=== PATIENT | female | born 1945 | race Hispanic/Latino ===

== ENCOUNTER 2017-08-30 13:32 | Emergency (ER) | payer OTHER, MEDICARE | END 2017-08-30 14:25 | disposition home or self-care (01) | LOC: EDH 13:32 | DX: L29.9 Pruritus, unspecified (principal) | CPT/HCPCS: 99282 ==

== ENCOUNTER → 2018-01-14 | Outpatient (CLI) | payer OTHER, MEDICARE | END | disposition home or self-care (01) | LOC: RAH 13:55 | PROVIDERS: ATTEND Family Medicine | DX: Z12.31 Encounter for screening mammogram for malignant neoplasm of breast (principal) | CPT/HCPCS: 77067 ==

== ENCOUNTER → 2020-05-05 | Outpatient (CLI) | payer OTHER, MEDICARE | END | disposition home or self-care (01) | LOC: RAH 04-21 11:10 | PROVIDERS: ATTEND Family Medicine | DX: Z12.31 Encounter for screening mammogram for malignant neoplasm of breast (principal) | CPT/HCPCS: 77067 ==

== ENCOUNTER 2022-07-12 12:06 | Inpatient (IN) | payer OTHER, MEDICARE ==
[~2022-07-12] VITALS: Ht 160 cm; Wt 70.0 kg
[2022-07-12] MEDS ORDERED: 0.9%NACL 1000ML 1,000 ML IV ONE (12:30)
[2022-07-12] MEDS: CLINDAMYCIN IVPB 600MG/50ML 50 ML IV SCH ×2 (12:44→20:04)
[2022-07-12 12:47] LABS: BASOPHILS % (AUTO) 0.4 % (0.0-5.0); EOSINOPHILS % (AUTO) 4.9 % (0.0-8.0); HEMATOCRIT 33.5 % (36-48); LYMPHOCYTES % (AUTO) 15.4 % (21.0-51.0); MEAN CORPUSCULAR HEMOGLOBIN 29.2 pg (27.0-33.0); MEAN CORPUSCULAR HGB CONC 32.5 g/dL (32.0-36.0); MEAN CORPUSCULAR VOLUME 89.8 fL (79-99); MONOCYTES % (AUTO) 9.9 % (3.0-13.0); NEUTROPHILS % (AUTO) 69.1 % (40.0-77.0); PLATELET COUNT (AUTO) 238 K/uL (130-400); RED BLOOD CELL COUNT(AUTO) 3.73 MIL/uL (4.00-5.50); RED CELL DISTRIBUTION WIDTH 13.8 % (11.0-15.5)
[2022-07-12 12:55] LABS: CREATININE 0.8 mg/dL (0.5-1.5); POTASSIUM 3.8 mmol/L (3.5-5.1)
[2022-07-12 13:00] LABS: ALBUMIN 3.6 g/dL (3.5-5.0); CRP QUANTITATIVE 17.7 mg/L (0.00-9.0)
[2022-07-12 13:45] LABS: APPEARANCE,URINE CLEAR (CLEAR); BILIRUBIN,URINE NEGATIVE (NEGATIVE); COLOR,URINE LIGHT-YELLOW (YELLOW); GLUCOSE, URINE (UA) NEGATIVE (NEGATIVE); KETONES,URINE NEGATIVE (NEGATIVE); LEUKOCYTE ESTERASE ,URINE NEGATIVE Leu/uL (NEGATIVE); NITRATE,URINE NEGATIVE (NEGATIVE); OCCULT BLOOD,URINE NEGATIVE (NEGATIVE); PH,URINE 6.5 (5.0-8.0); PROTEIN,URINE NEGATIVE (NEGATIVE); UROBILINOGEN,URINE 0.2 mg/dL (0.2-1.0)
[2022-07-12] MEDS ORDERED: HYDROCODONE/ACETAMINOPHEN 5/325 MG TAB PO PRN (16:30)
[2022-07-12] MEDS ORDERED: ONDANSETRON 4MG INJ IV PRN (16:30)
[2022-07-12] MEDS ORDERED: LACTULOSE 20 GM/30 ML UDCUP PO PRN (16:30)
[2022-07-12] MEDS ORDERED: ZOLPIDEM TARTRATE 5 MG TAB PO PRN (16:30)
[2022-07-12] MEDS: 0.9%NACL 1000ML 1,000 ML IV SCH ×2 (17:36→22:34)
[2022-07-12 18:41] VITALS: BP 140/57
[2022-07-12] MEDS: FAMOTIDINE 20MG TAB PO SCH (20:04)
[2022-07-12 20:31] VITALS: BP 124/71
[2022-07-12] MEDS ORDERED: LEVO75 PO (23:27)
[2022-07-12] MEDS ORDERED: GABA600T10 PO (23:27)
[2022-07-12] MEDS ORDERED: SIMV-43 PO (23:27)
[2022-07-12] MEDS: DIPHENHYDRAMINE HCL 25 MG CAPSULE PO PRN (23:39)
[2022-07-13] VITALS (7 sets, daily range): BP systolic 115–134; BP diastolic 63–99
[2022-07-13] MEDS ORDERED: GABAPENTIN 300 MG CAPSULE PO PRN (00:30)
[2022-07-13] MEDS: CLINDAMYCIN IVPB 600MG/50ML 50 ML IV SCH ×3 (03:51→22:07)
[2022-07-13] MEDS: HYDROCODONE/ACETAMINOPHEN 5/325 MG TAB PO PRN ×2 (03:51→11:19)
[2022-07-13 05:55] LABS: BASOPHILS % (AUTO) 0.5 % (0.0-5.0); EOSINOPHILS % (AUTO) 5.2 % (0.0-8.0); HEMATOCRIT 28.8 % (36-48); MEAN CORPUSCULAR HEMOGLOBIN 29.4 pg (27.0-33.0); MEAN CORPUSCULAR HGB CONC 31.6 g/dL (32.0-36.0); MEAN CORPUSCULAR VOLUME 92.9 fL (79-99); MONOCYTES % (AUTO) 11.8 % (3.0-13.0); NEUTROPHILS % (AUTO) 59.2 % (40.0-77.0); PLATELET COUNT (AUTO) 201 K/uL (130-400); RED CELL DISTRIBUTION WIDTH 14.1 % (11.0-15.5); WHITE BLOOD COUNT (AUTO) 5.8 K/uL (4.8-10.8)
[2022-07-13 06:14] LABS: CREATININE 0.7 mg/dL (0.5-1.5); POTASSIUM 3.7 mmol/L (3.5-5.1); THYROID STIMULATING HORMONE 2.24 uIU/mL (0.36-3.74)
[2022-07-13 06:25] LABS: HEMOGLOBIN A1C 5.9 % (4.0-6.0)
[2022-07-13] MEDS ORDERED: LEVOTHYROXINE 100 MCG TABLET PO SCH (06:30)
[2022-07-13] MEDS: LEVOTHYROXINE 75 MCG TABLET PO SCH (07:15)
[2022-07-13] MEDS: FAMOTIDINE 20MG TAB PO SCH ×2 (11:14→21:00)
[2022-07-13] MEDS: 0.9%NACL 1000ML 1,000 ML IV SCH (11:22)
[2022-07-13] MEDS: ENOXAPARIN SODIUM 40 MG/0.4 ML SYRINGE SQ SCH (11:23)
[2022-07-13] MEDS ORDERED: LEVOFLOXACIN 500 MG/D5W 100 ML 100 ML ONE (13:06)
[2022-07-13] MEDS: LEVOFLOXACIN 500 MG/D5W 100 ML 100 ML IV SCH (13:22)
[2022-07-13] MEDS ORDERED: LORAZEPAM 2 MG/ML 1 ML VIAL IM SCH (15:00)
[2022-07-13] MEDS ORDERED: LORAZEPAM 2 MG/ML 1 ML VIAL IVP SCH (16:30)
[2022-07-13] MEDS: SIMVASTATIN 20 MG TABLET PO SCH (21:00)
[2022-07-13] MEDS: HALOPERIDOL INJ 5 MG/ML VIAL IM PRN (23:04)
[2022-07-14 04:10] VITALS: BP 116/54
[2022-07-14 04:18] LABS: HEMATOCRIT 30.6 % (36-48); MEAN CORPUSCULAR HGB CONC 32.4 g/dL (32.0-36.0); MEAN CORPUSCULAR VOLUME 89.7 fL (79-99); RED BLOOD CELL COUNT(AUTO) 3.41 MIL/uL (4.00-5.50); WHITE BLOOD COUNT (AUTO) 5.8 K/uL (4.8-10.8)
[2022-07-14 04:24] LABS: CREATININE 0.6 mg/dL (0.5-1.5); MAGNESIUM 1.9 mg/dL (1.80-2.40); PHOSPHORUS 3.9 mg/dL (2.5-4.9); POTASSIUM 3.8 mmol/L (3.5-5.1); TOTAL PROTEIN, SERUM 6.1 g/dL (6.0-8.3)
[2022-07-14] MEDS: CLINDAMYCIN IVPB 600MG/50ML 50 ML IV SCH ×3 (05:00→20:30)
[2022-07-14] MEDS: LEVOTHYROXINE 75 MCG TABLET PO SCH (06:07)
[2022-07-14 08:00] VITALS: BP 124/74
[2022-07-14 11:00] VITALS: BP 138/49
[2022-07-14] MEDS: ENOXAPARIN SODIUM 40 MG/0.4 ML SYRINGE SQ SCH (11:09)
[2022-07-14] MEDS: FAMOTIDINE 20MG TAB PO SCH ×2 (11:09→21:57)
[2022-07-14 16:00] VITALS: BP 137/72
[2022-07-14] MEDS: HALOPERIDOL INJ 5 MG/ML VIAL IM PRN (17:52)
[2022-07-14] MEDS: LEVOFLOXACIN 500 MG/D5W 100 ML 100 ML IV SCH (19:04)
[2022-07-14 20:05] VITALS: BP 113/57
[2022-07-14] MEDS: SIMVASTATIN 20 MG TABLET PO SCH (21:57)
[2022-07-14 23:36] VITALS: BP 134/83
[2022-07-15 04:11] LABS: HEMATOCRIT 30.3 % (36-48); MEAN CORPUSCULAR HEMOGLOBIN 29.4 pg (27.0-33.0); MEAN CORPUSCULAR HGB CONC 32.3 g/dL (32.0-36.0); RED BLOOD CELL COUNT(AUTO) 3.33 MIL/uL (4.00-5.50); RED CELL DISTRIBUTION WIDTH 13.8 % (11.0-15.5); WHITE BLOOD COUNT (AUTO) 5.4 K/uL (4.8-10.8)
[2022-07-15 04:12] VITALS: BP 103/70
[2022-07-15 04:33] LABS: CREATININE 0.7 mg/dL (0.5-1.5); MAGNESIUM 2.1 mg/dL (1.80-2.40); PHOSPHORUS 3.9 mg/dL (2.5-4.9); POTASSIUM 3.7 mmol/L (3.5-5.1); TOTAL PROTEIN, SERUM 6.1 g/dL (6.0-8.3)
[2022-07-15] MEDS: CLINDAMYCIN IVPB 600MG/50ML 50 ML IV SCH ×3 (05:18→21:13)
[2022-07-15] MEDS: LEVOTHYROXINE 75 MCG TABLET PO SCH (07:18)
[2022-07-15 07:30] VITALS: BP 131/72
[2022-07-15] MEDS: FAMOTIDINE 20MG TAB PO SCH ×2 (10:14→21:13)
[2022-07-15] MEDS: ENOXAPARIN SODIUM 40 MG/0.4 ML SYRINGE SQ SCH (10:16)
[2022-07-15 11:30] VITALS: BP 105/50
[2022-07-15] MEDS: LEVOFLOXACIN 500 MG/D5W 100 ML 100 ML IV SCH (14:58)
[2022-07-15 15:30] VITALS: BP 106/55
[2022-07-15] MEDS: CITALOPRAM 20 MG TABLET PO SCH (17:03)
[2022-07-15] MEDS ORDERED: PHARMACY COMMUNICATION MISC SCH (19:00)
[2022-07-15 20:00] VITALS: BP 139/45
[2022-07-15] MEDS ORDERED: DULOXETINE HCL 30 MG CAP PO SCH (21:00)
[2022-07-15] MEDS: TRAZODONE HCL 50 MG TAB PO SCH (21:13)
[2022-07-15] MEDS: SIMVASTATIN 20 MG TABLET PO SCH (21:13)
[2022-07-16] VITALS: BP 114/39
[2022-07-16 04:00] VITALS: BP 137/81
[2022-07-16 04:47] LABS: MEAN CORPUSCULAR HEMOGLOBIN 29.6 pg (27.0-33.0); MEAN CORPUSCULAR HGB CONC 34.2 g/dL (32.0-36.0); MEAN CORPUSCULAR VOLUME 86.6 fL (79-99); RED BLOOD CELL COUNT(AUTO) 3.58 MIL/uL (4.00-5.50); RED CELL DISTRIBUTION WIDTH 13.8 % (11.0-15.5); WHITE BLOOD COUNT (AUTO) 6.7 K/uL (4.8-10.8)
[2022-07-16 04:59] LABS: ALBUMIN 3.5 g/dL (3.5-5.0); CREATININE 0.7 mg/dL (0.5-1.5); CRP QUANTITATIVE 11.9 mg/L (0.00-9.0); MAGNESIUM 2.1 mg/dL (1.80-2.40); PHOSPHORUS 4.1 mg/dL (2.5-4.9); POTASSIUM 3.7 mmol/L (3.5-5.1); TOTAL PROTEIN, SERUM 6.9 g/dL (6.0-8.3)
[2022-07-16] MEDS: LEVOTHYROXINE 75 MCG TABLET PO SCH (06:09)
[2022-07-16] MEDS: CLINDAMYCIN IVPB 600MG/50ML 50 ML IV SCH (06:09)
[2022-07-16 07:30] VITALS: BP 154/61
[2022-07-16] MEDS: CITALOPRAM 20 MG TABLET PO SCH (09:35)
[2022-07-16] MEDS: FAMOTIDINE 20MG TAB PO SCH ×2 (09:35→20:50)
[2022-07-16] MEDS: ENOXAPARIN SODIUM 40 MG/0.4 ML SYRINGE SQ SCH (09:36)
[2022-07-16 11:00] VITALS: BP 106/58
[2022-07-16] MEDS ORDERED: VANCOMYCIN PROTOCOL PER PHARMACY IV SCH (11:00)
[2022-07-16] MEDS: CEFEPIME HCL 2 GM VIAL IVP SCH ×2 (12:19→22:45)
[2022-07-16] MEDS: HALOPERIDOL INJ 5 MG/ML VIAL IM PRN (12:20)
[2022-07-16 15:30] VITALS: BP 125/73
[2022-07-16] MEDS: VANCOMYCIN 1G/250ML KIT 250 ML IV SCH ×2 (16:51→22:46)
[2022-07-16 20:00] VITALS: BP 123/64
[2022-07-16] MEDS: TRAZODONE HCL 50 MG TAB PO SCH (20:50)
[2022-07-16] MEDS: SIMVASTATIN 20 MG TABLET PO SCH (20:50)
[2022-07-17] VITALS (15 sets, daily range): BP systolic 88–148; BP diastolic 45–73
[2022-07-17 04:37] LABS: ALBUMIN 3.2 g/dL (3.5-5.0); CREATININE 0.6 mg/dL (0.5-1.5); POTASSIUM 3.7 mmol/L (3.5-5.1); TOTAL PROTEIN, SERUM 6.5 g/dL (6.0-8.3)
[2022-07-17] MEDS: LEVOTHYROXINE 75 MCG TABLET PO SCH (06:37)
[2022-07-17 08:37] LABS: INR 0.94 (0.85-1.15); PROTHROMBIN TIME 10.3 SEC (9.6-11.6)
[2022-07-17 08:38] LABS: PARTIAL THROMBOPLASTIN TIME 29.9 SEC (26.3-35.5)
[2022-07-17] MEDS: ENOXAPARIN SODIUM 40 MG/0.4 ML SYRINGE SQ SCH (09:00)
[2022-07-17] MEDS: CITALOPRAM 20 MG TABLET PO SCH (09:00)
[2022-07-17] MEDS: FAMOTIDINE 20MG TAB PO SCH ×2 (09:00→20:42)
[2022-07-17] MEDS ORDERED: 0.9% NACL 250ML 250 ML ONE (09:41)
[2022-07-17] MEDS: CEFEPIME HCL 2 GM VIAL IVP SCH ×2 (09:48→22:16)
[2022-07-17] MEDS: VANCOMYCIN 1G/250ML KIT 250 ML IV SCH ×2 (09:49→23:47)
[2022-07-17] MEDS ORDERED: NICARDIPINE 25MG INJ IV ONE (11:29)
[2022-07-17] MEDS ORDERED: LIDOCAINE HCL 400MG/20ML VIAL ONE (11:29)
[2022-07-17] MEDS ORDERED: NITROGLYCERIN 50MG VIAL ONE (11:29)
[2022-07-17] MEDS ORDERED: IODIXANOL 320 MG/ML 100 ML VIAL ONE (11:29)
[2022-07-17] MEDS ORDERED: MIDAZOLAM HCL 1 MG/ML 2ML VIAL ONE (11:29)
[2022-07-17] MEDS ORDERED: HEPARIN 10,000 UNIT/10ML (1,000 UNIT/ML) VIAL ONE (11:29)
[2022-07-17] MEDS ORDERED: FENTANYL CITRATE PF 50 MCG/1 ML 2ML VIAL ONE (11:29)
[2022-07-17] MEDS ORDERED: ATROPINE 1MG SYG IVP ONE (12:50)
[2022-07-17] MEDS ORDERED: 0.9%NACL 1000ML 1,000 ML IV SCH (13:30)
[2022-07-17] MEDS ORDERED: DEXTROSE 50%-WATER 50 ML DISP.SYRIN IV PRN (13:30)
[2022-07-17] MEDS ORDERED: GLUCAGON 1MG KIT 1 MG ML IM PRN (13:30)
[2022-07-17] MEDS: TRAZODONE HCL 50 MG TAB PO SCH (20:42)
[2022-07-17] MEDS: SIMVASTATIN 20 MG TABLET PO SCH (20:42)
[2022-07-17] MEDS: DIPHENHYDRAMINE HCL 25 MG CAPSULE PO PRN (23:50)
[2022-07-18] VITALS: BP 154/84
[2022-07-18 04:00] VITALS: BP 121/52
[2022-07-18 05:09] LABS: CREATININE 0.5 mg/dL (0.5-1.5); POTASSIUM 3.4 mmol/L (3.5-5.1); TOTAL PROTEIN, SERUM 6.2 g/dL (6.0-8.3)
[2022-07-18 05:47] LABS: HEMATOCRIT 30.5 % (36-48); MEAN CORPUSCULAR HEMOGLOBIN 29.1 pg (27.0-33.0); MEAN CORPUSCULAR HGB CONC 32.1 g/dL (32.0-36.0); MEAN CORPUSCULAR VOLUME 90.5 fL (79-99); RED BLOOD CELL COUNT(AUTO) 3.37 MIL/uL (4.00-5.50); RED CELL DISTRIBUTION WIDTH 13.8 % (11.0-15.5)
[2022-07-18 06:04] LABS: HEMOGLOBIN A1C 5.8 % (4.0-6.0)
[2022-07-18] MEDS: LEVOTHYROXINE 75 MCG TABLET PO SCH (06:31)
[2022-07-18 07:30] VITALS: BP 141/62
[2022-07-18] MEDS: FAMOTIDINE 20MG TAB PO SCH (09:03)
[2022-07-18] MEDS: ENOXAPARIN SODIUM 40 MG/0.4 ML SYRINGE SQ SCH (09:03)
[2022-07-18] MEDS: CITALOPRAM 20 MG TABLET PO SCH (09:03)
[2022-07-18] MEDS: VANCOMYCIN 1G/250ML KIT 250 ML IV SCH (09:03)
[2022-07-18 11:30] VITALS: BP 140/86
[2022-07-18] MEDS: CEFEPIME HCL 2 GM VIAL IVP SCH (11:49)
[2022-07-18] MEDS ORDERED: ASPI-1005 PO (14:33)
== END 2022-07-18 18:00 | disposition home or self-care (01) | DRG 603 ==
LOC: EDH 12:06 → EDHIP 16:17 → OBSVTOIN 16:17 → 3DH 17:59
PROVIDERS: ADMIT Internal Medicine; ATTEND Internal Medicine
PROC: B41D1ZZ Fluoroscopy of Aorta and Bilateral Lower Extremity Arteries using Low Osmolar Contrast (ICD-10-PCS; principal; 2022-07-17)
DX: L03.116 Cellulitis of left lower limb (principal); R79.82 Elevated C-reactive protein (CRP); R00.1 Bradycardia, unspecified; Z20.822 Contact with and (suspected) exposure to COVID-19; E03.9 Hypothyroidism, unspecified; I10 Essential (primary) hypertension; M17.10 Unilateral primary osteoarthritis, unspecified knee; E78.00 Pure hypercholesterolemia, unspecified; G89.29 Other chronic pain; M54.9 Dorsalgia, unspecified; I73.9 Peripheral vascular disease, unspecified; F03.90 Unspecified dementia, unspecified severity, without behavioral disturbance, psychotic disturbance, mood disturbance, and anxiety; M48.061 Spinal stenosis, lumbar region without neurogenic claudication; M47.819 Spondylosis without myelopathy or radiculopathy, site unspecified; Z91.199 Patient's noncompliance with other medical treatment and regimen due to unspecified reason; I77.1 Stricture of artery
CPT/HCPCS: 36246; 36415; 70450; 73700; 75716; 80048; 80053; 80202; 81003; 82140; 83036; 83605; 83735; 84100; 84443; 85025; 85027; 85610; 85730; 86140; 87040; 87635; 93880; 93926; 93971; 99156; 99157; C1760; C1894; C9803; G0378; J0461; J0692; J1630; J1644; J1650; J1956; J2060; J2250; J3010; J3370; J3490; J7030; J7050; Q0163; Q9967

== ENCOUNTER → 2023-01-20 | Outpatient (CLI) | payer OTHER, MEDICARE ==
[~2023-01-20] MED LIST: ASPI-1005 PO; GABA600T10 PO; LEVO75 PO; MEMA5TAB42 PO; SIMV-43 PO
== END | disposition home or self-care (01) ==
LOC: RAH 10:24
PROVIDERS: ATTEND Family Medicine
DX: Z12.31 Encounter for screening mammogram for malignant neoplasm of breast (principal)
CPT/HCPCS: 77067

== ENCOUNTER 2023-12-18 11:31 | Inpatient (IN) | payer OTHER, MEDICARE ==
[~2023-12-18] VITALS: Ht 160 cm; Wt 65.9 kg
[~2023-12-18 11:31] MED LIST changes: +MEMA5TAB16 PO; -MEMA5TAB42 PO
[2023-12-18 12:21] LABS: BASOPHILS # (AUTO) 0.03 K/uL (0.00-0.20); BASOPHILS % (AUTO) 0.3 % (0.0-5.0); EOSINOPHILS # (AUTO) 0.01 K/uL (0.00-0.70); EOSINOPHILS % (AUTO) 0.1 % (0.0-8.0); HEMATOCRIT 43.7 % (36-48); IMMATURE GRANULOCYTE ABSOLUTE 0.05 K/uL (0-1); LYMPHOCYTES # (AUTO) 1.3 K/uL (1.0-4.8); LYMPHOCYTES % (AUTO) 12.1 % (21.0-51.0); MEAN CORPUSCULAR HGB CONC 34.3 g/dL (32.0-36.0); MEAN CORPUSCULAR VOLUME 84.5 fL (79-99); MONOCYTES % (AUTO) 9.6 % (3.0-13.0); NEUTROPHILS # (AUTO) 8.1 K/uL (1.8-7.7); NEUTROPHILS % (AUTO) 77.4 % (40.0-77.0); PLATELET COUNT (AUTO) 373 K/uL (130-400); RED BLOOD CELL COUNT(AUTO) 5.17 MIL/uL (4.00-5.50); RED CELL DISTRIBUTION WIDTH 14.1 % (11.0-15.5); WHITE BLOOD COUNT (AUTO) 10.4 K/uL (4.8-10.8)
[2023-12-18 12:40] LABS: ALBUMIN 4.8 g/dL (3.5-5.0); BILIRUBIN,TOTAL 0.6 mg/dL (0.2-1.0); CREATININE 3.5 mg/dL (0.5-1.0); POTASSIUM 3.9 mmol/L (3.5-5.1); TOTAL PROTEIN, SERUM 9.7 g/dL (6.0-8.3)
[2023-12-18 13:05] LABS: B-TYPE NATRIURETIC PEPTIDE 172 pg/mL (0-100)
[2023-12-18 14:01] LABS: BASE EXCESS,VENOUS BLOOD GAS 10.3 (-2.0-3.0); HCO3,VENOUS BLOOD GAS 36.9 (21.0-28.0); PCO2,VENOUS BLOOD GAS 57 (32-45); PH,VENOUS BLOOD GAS 7.431 (7.350-7.450); PO2,VENOUS BLOOD GAS 21.7 mmHg (35.0-45.0); VENT MODE, BG RA (ROOM AIR)
[2023-12-18] MEDS: ONDANSETRON 4MG INJ IVP ONE ×2 (14:38→17:00)
[2023-12-18] MEDS ORDERED: LABETALOL 20MG SYG IV PRN (15:00)
[2023-12-18] MEDS ORDERED: CLONIDINE HCL 0.1 MG TABLET PO PRN (15:00)
[2023-12-18] MEDS ORDERED: LACTULOSE 20 GM/30 ML UDCUP PO PRN (15:00)
[2023-12-18] MEDS ORDERED: ONDANSETRON 4MG INJ IV PRN (15:00)
[2023-12-18] MEDS ORDERED: HYDRALAZINE 20MG/ML VIAL IV PRN (15:00)
[2023-12-18] MEDS ORDERED: ACETAMINOPHEN 650 MG SUPPOSITORY RC PRN (15:00)
[2023-12-18] MEDS: 0.9%NACL 1000ML 1,000 ML IV SCH ×2 (16:54→19:30)
[2023-12-18] MEDS: CEFTRIAXONE 2GM VIAL IVPB SCH (17:01)
[2023-12-18] MEDS: METRONIDAZOLE 500MG/100ML BAG IV SCH (17:01)
[2023-12-18 20:12] LABS: MAGNESIUM 2.9 mg/dL (1.80-2.40); PHOSPHORUS 7.7 mg/dL (2.5-4.9); THYROID STIMULATING HORMONE 2.07 uIU/mL (0.36-3.74); URIC ACID 8.8 mg/dL (2.6-7.2)
[2023-12-18 23:10] VITALS: BP 144/109; PULSE 106; RESP 16; O2SAT 93
[2023-12-18] MEDS ORDERED: MEMA10TA21 PO (23:21)
[2023-12-18] MEDS ORDERED: TRAZ-185 PO (23:21)
[2023-12-18] MEDS ORDERED: CHOL500050 PO (23:42)
[2023-12-19] VITALS (31 sets, daily range): BP systolic 83–143; BP diastolic 40–89; PULSE 72–117; RESP 16–20; O2SAT 93–95
[2023-12-19] MEDS: HYDROCODONE/ACETAMINOPHEN 5/325 MG TAB PO PRN (03:20)
[2023-12-19] MEDS: HALOPERIDOL INJ 5 MG/ML VIAL IV ONE (03:24)
[2023-12-19] MEDS: HALOPERIDOL INJ 5 MG/ML VIAL ONE (03:25)
[2023-12-19 04:38] LABS: CHLORIDE,URINE RANDOM < 21 mmol/L (110-250); CREATININE,URINE RANDOM 176.66 mg/dL (30-135); POTASSIUM,URINE RANDOM 115 mmol/L (25-125); SODIUM,URINE RANDOM 18 mmol/l (40-220)
[2023-12-19 04:39] LABS: APPEARANCE,URINE CLOUDY (CLEAR); BILIRUBIN,URINE 1 mg/dL (NEGATIVE); COLOR,URINE YELLOW (YELLOW); GLUCOSE, URINE (UA) 30 mg/dL (NEGATIVE); KETONES,URINE NEGATIVE (NEGATIVE); LEUKOCYTE ESTERASE ,URINE NEGATIVE Leu/uL (NEGATIVE); NITRATE,URINE NEGATIVE (NEGATIVE); OCCULT BLOOD,URINE SMALL (NEGATIVE); PROTEIN,URINE 30 mg/dL (NEGATIVE); UROBILINOGEN,URINE 0.2 mg/dL (0.2-1.0)
[2023-12-19 04:47] LABS: ADD UA MICROSCOPIC YES
[2023-12-19 05:02] LABS: RBC,URINE 0-1 /HPF (0-1); WBC,URINE 0-1 /HPF (0-1)
[2023-12-19 05:03] LABS: BACTERIA,URINE Moderate /HPF (None Seen); SQUAMOUS EPITHELIAL CELL,UR Few /HPF (0-2)
[2023-12-19 05:37] LABS: HEMATOCRIT 42.1 % (36-48); MEAN CORPUSCULAR HGB CONC 34.2 g/dL (32.0-36.0); MEAN CORPUSCULAR VOLUME 84.9 fL (79-99); RED BLOOD CELL COUNT(AUTO) 4.96 MIL/uL (4.00-5.50); RED CELL DISTRIBUTION WIDTH 14.3 % (11.0-15.5); WHITE BLOOD COUNT (AUTO) 12.8 K/uL (4.8-10.8)
[2023-12-19 05:38] LABS: CREATININE 4.2 mg/dL (0.5-1.0); MAGNESIUM 2.7 mg/dL (1.80-2.40); POTASSIUM 3.3 mmol/L (3.5-5.1)
[2023-12-19] MEDS: PANTOPRAZOLE 40 MG TAB DR PO SCH (08:33)
[2023-12-19] MEDS: POLYETHYLENE GLYCOL 3350 17 GM POWD.PACK PO SCH (08:34)
[2023-12-19] MEDS: Vitamin B Complex/Vit C/Folic Acid PO SCH (08:34)
[2023-12-19] MEDS ORDERED: ENOXAPARIN SODIUM 40 MG/0.4 ML SYRINGE SQ SCH (09:00)
[2023-12-19] MEDS ORDERED: MEROPENEM 1 GM in 0.9%NACL 100ML 100 ML IV SCH (10:30)
[2023-12-19] MEDS: ENOXAPARIN SODIUM 30 MG/0.3 ML SQ SCH (10:45)
[2023-12-19] MEDS: [UNRECOGNIZED DRUG - OTHER] IV SCH (12:34)
[2023-12-19] MEDS: MEROPENEM IV SCH (12:34)
[2023-12-19] MEDS: ACETAMINOPHEN 1,000 MG/100 ML VIAL IV ONE (12:49)
[2023-12-19] MEDS: FAMOTIDINE 20MG VIAL IV ONE (12:49)
[2023-12-19 12:51] LABS: ABG BASE EXCESS 4.7 mmol/L (-2.0-3.0); ABG HCO3 27.4 mmol/L (21.0-28.0); ABG OXYGEN SATURATION 96.6 % (95.0-99.0); ABG PCO2 35 mmHg (32-45); ABG PH 7.517 (7.35-7.450); PO2, ARTERIAL BG 77.5 mmHg (83.0-108.0); VENT MODE, BG ROOM AIR (ROOM AIR)
[2023-12-19] MEDS ORDERED: PROPOFOL 10 MG/ML 20ML VIAL IV ONE (12:51)
[2023-12-19] MEDS ORDERED: FENTANYL CITRATE PF 50 MCG/1 ML 2ML VIAL ONE (12:51)
[2023-12-19] MEDS ORDERED: LIDOCAINE PF 100MG/5ML (2%) SYRINGE 5ML ONE (12:51)
[2023-12-19] MEDS ORDERED: DEXAMETHASONE SOD PHOSPHATE 4 MG/ML 1ML VIAL ONE (13:21)
[2023-12-19] MEDS ORDERED: ONDANSETRON 4MG INJ ONE (13:21)
[2023-12-19] MEDS: MEROPENEM 1 GM VIAL IV ONE (13:25)
[2023-12-19] MEDS: SUGAMMADEX SODIUM 200 MG/2 ML VIAL IV ONE (14:22)
[2023-12-19] MEDS ORDERED: BUPIVACAINE/PF 0.5% 10ML VIAL ONE (14:29)
[2023-12-19] MEDS: LACTATED RINGERS 1000ML 1,572 ML IV ONE (21:23)
[2023-12-19] MEDS: DOXYCYCLINE 100MG+NS 250ML 250 ML IV SCH (21:23)
[2023-12-19 21:26] LABS: BASOPHILS # (AUTO) 0.08 K/uL (0.00-0.20); BASOPHILS % (AUTO) 0.4 % (0.0-5.0); EOSINOPHILS # (AUTO) 0.01 K/uL (0.00-0.70); EOSINOPHILS % (AUTO) 0.1 % (0.0-8.0); HEMATOCRIT 37.2 % (36-48); IMMATURE GRANULOCYTE ABSOLUTE 0.22 K/uL (0-1); LYMPHOCYTES # (AUTO) 1.1 K/uL (1.0-4.8); MEAN CORPUSCULAR HEMOGLOBIN 29.9 pg (27.0-33.0); MEAN CORPUSCULAR HGB CONC 32.3 g/dL (32.0-36.0); MEAN CORPUSCULAR VOLUME 92.5 fL (79-99); MONOCYTES # (AUTO) 1.3 K/uL (0.1-1.0); NEUTROPHILS # (AUTO) 15.6 K/uL (1.8-7.7); NEUTROPHILS % (AUTO) 85.3 % (40.0-77.0); PLATELET COUNT (AUTO) 282 K/uL (130-400); RED BLOOD CELL COUNT(AUTO) 4.02 MIL/uL (4.00-5.50); RED CELL DISTRIBUTION WIDTH 14.5 % (11.0-15.5); WHITE BLOOD COUNT (AUTO) 18.3 K/uL (4.8-10.8)
[2023-12-19] MEDS ORDERED: 0.9%NACL 1000ML 1,000 ML IV SCH ×2 (21:30→22:30)
[2023-12-19 21:55] LABS: ALBUMIN 3.2 g/dL (3.5-5.0); BILIRUBIN,TOTAL 0.4 mg/dL (0.2-1.0); CREATININE 3.4 mg/dL (0.5-1.0); POTASSIUM 3.1 mmol/L (3.5-5.1)
[2023-12-19 23:44] LABS: HEMATOCRIT 30.3 % (36-48); MEAN CORPUSCULAR HEMOGLOBIN 30.1 pg (27.0-33.0); MEAN CORPUSCULAR HGB CONC 33.3 g/dL (32.0-36.0); MEAN CORPUSCULAR VOLUME 90.2 fL (79-99); RED BLOOD CELL COUNT(AUTO) 3.36 MIL/uL (4.00-5.50); WHITE BLOOD COUNT (AUTO) 13.5 K/uL (4.8-10.8)
[2023-12-20] VITALS (8 sets, daily range): BP systolic 107–141; BP diastolic 60–74; PULSE 77–85; RESP 16–18; O2SAT 95
[2023-12-20 03:19] LABS: BASOPHILS # (AUTO) 0.02 K/uL (0.00-0.20); BASOPHILS % (AUTO) 0.2 % (0.0-5.0); EOSINOPHILS # (AUTO) 0.01 K/uL (0.00-0.70); EOSINOPHILS % (AUTO) 0.1 % (0.0-8.0); HEMATOCRIT 25.2 % (36-48); IMMATURE GRANULOCYTE ABSOLUTE 0.19 K/uL (0-1); LYMPHOCYTES # (AUTO) 0.9 K/uL (1.0-4.8); LYMPHOCYTES % (AUTO) 9.4 % (21.0-51.0); MEAN CORPUSCULAR HEMOGLOBIN 30.2 pg (27.0-33.0); MEAN CORPUSCULAR HGB CONC 33.7 g/dL (32.0-36.0); MEAN CORPUSCULAR VOLUME 89.7 fL (79-99); MONOCYTES # (AUTO) 0.8 K/uL (0.1-1.0); NEUTROPHILS # (AUTO) 7.9 K/uL (1.8-7.7); NEUTROPHILS % (AUTO) 80.4 % (40.0-77.0); PLATELET COUNT (AUTO) 192 K/uL (130-400); RED BLOOD CELL COUNT(AUTO) 2.81 MIL/uL (4.00-5.50); RED CELL DISTRIBUTION WIDTH 14.2 % (11.0-15.5); WHITE BLOOD COUNT (AUTO) 9.8 K/uL (4.8-10.8)
[2023-12-20 03:26] LABS: ALBUMIN 2.3 g/dL (3.5-5.0); BILIRUBIN,TOTAL 0.3 mg/dL (0.2-1.0); CREATININE 2.1 mg/dL (0.5-1.0); PHOSPHORUS 2.9 mg/dL (2.5-4.9); POTASSIUM 3.3 mmol/L (3.5-5.1); TOTAL PROTEIN, SERUM 5.1 g/dL (6.0-8.3)
[2023-12-20] MEDS ORDERED: KCL 20 MEQ ERTAB PO PRN (06:00)
[2023-12-20] MEDS ORDERED: POTASSIUM CHLORIDE 10MEQ/100ML 100 ML IV PRN (06:00)
[2023-12-20] MEDS: POTASSIUM CHLORIDE 10% ELIXIR 20 MEQ/15 ML UDCUP PO PRN (06:02)
[2023-12-21] VITALS (9 sets, daily range): BP systolic 112–131; BP diastolic 45–75; PULSE 67–82; RESP 16–20; O2SAT 92–95
[2023-12-21 05:03] LABS: BASOPHILS # (AUTO) 0.03 K/uL (0.00-0.20); BASOPHILS % (AUTO) 0.2 % (0.0-5.0); EOSINOPHILS # (AUTO) 0.02 K/uL (0.00-0.70); EOSINOPHILS % (AUTO) 0.2 % (0.0-8.0); IMMATURE GRANULOCYTE ABSOLUTE 0.67 K/uL (0-1); LYMPHOCYTES # (AUTO) 1.7 K/uL (1.0-4.8); LYMPHOCYTES % (AUTO) 13.7 % (21.0-51.0); MEAN CORPUSCULAR HEMOGLOBIN 29.6 pg (27.0-33.0); MEAN CORPUSCULAR HGB CONC 31.9 g/dL (32.0-36.0); MEAN CORPUSCULAR VOLUME 92.9 fL (79-99); MONOCYTES # (AUTO) 1.3 K/uL (0.1-1.0); MONOCYTES % (AUTO) 10.2 % (3.0-13.0); NEUTROPHILS # (AUTO) 8.6 K/uL (1.8-7.7); NEUTROPHILS % (AUTO) 70.2 % (40.0-77.0); NUCLEATED RED BLOOD CELLS 0.2 % (0.0-0.19); PLATELET COUNT (AUTO) 229 K/uL (130-400); RED CELL DISTRIBUTION WIDTH 14.4 % (11.0-15.5); WHITE BLOOD COUNT (AUTO) 12.2 K/uL (4.8-10.8)
[2023-12-21 05:18] LABS: CREATININE 0.9 mg/dL (0.5-1.0); PHOSPHORUS 1.4 mg/dL (2.5-4.9); POTASSIUM 3.2 mmol/L (3.5-5.1)
[2023-12-21 05:33] LABS: % IRON SATURATION 34.1 % (22-44)
[2023-12-21] MEDS ORDERED: COMPOUND IV MISC 1 EACH IVSOLN MISC PRN (11:30)
[2023-12-21] MEDS ORDERED: COMPOUND IV REFRIGERATED 1 EACH IVSOLN MISC PRN (12:00)
[2023-12-21] MEDS: POTASSIUM PHOSPHATE IV SCH (12:03)
[2023-12-21] MEDS: NACL 0.9% IV SCH (12:03)
[2023-12-21] MEDS: POTASSIUM PHOS 15 mMOL+NS250ML 250 ML IV ONE (16:21)
[2023-12-22] VITALS (8 sets, daily range): BP systolic 125–136; BP diastolic 58–100; PULSE 62–78; RESP 16–18; O2SAT 93–100
[2023-12-22] MEDS: MELATONIN 5 MG TABLET PO ONE (00:50)
[2023-12-22] MEDS: MELATONIN 5 MG TABLET PO SCH (00:55)
[2023-12-22] MEDS: DiphenhydrAMINE HCL 50 MG/ML VIAL IV ONE (00:57)
[2023-12-22 05:48] LABS: HEMATOCRIT 23.8 % (36-48); MEAN CORPUSCULAR HEMOGLOBIN 28.7 pg (27.0-33.0); MEAN CORPUSCULAR HGB CONC 31.1 g/dL (32.0-36.0); MEAN CORPUSCULAR VOLUME 92.2 fL (79-99); NUCLEATED RED BLOOD CELLS 0.4 % (0.0-0.19); RED BLOOD CELL COUNT(AUTO) 2.58 MIL/uL (4.00-5.50); RED CELL DISTRIBUTION WIDTH 14.6 % (11.0-15.5); WHITE BLOOD COUNT (AUTO) 10.7 K/uL (4.8-10.8)
[2023-12-22 06:09] LABS: ALBUMIN 2.2 g/dL (3.5-5.0); BILIRUBIN,TOTAL 0.5 mg/dL (0.2-1.0); CREATININE 0.7 mg/dL (0.5-1.0); MAGNESIUM 1.9 mg/dL (1.80-2.40); PHOSPHORUS 1.8 mg/dL (2.5-4.9); POTASSIUM 3.5 mmol/L (3.5-5.1); TOTAL PROTEIN, SERUM 5.2 g/dL (6.0-8.3)
[2023-12-22] MEDS: POTASSIUM PHOSPHATE 15 MMOL in 0.9% NACL 250ML 250 ML IV SCH (17:20)
[2023-12-22] MEDS: ACETAMINOPHEN 325 MG TAB PO PRN (17:29)
[2023-12-23 04:00] VITALS: BP 150/78; PULSE 68; RESP 18
[2023-12-23 05:17] LABS: BASOPHILS # (AUTO) 0.03 K/uL (0.00-0.20); BASOPHILS % (AUTO) 0.3 % (0.0-5.0); EOSINOPHILS # (AUTO) 0.15 K/uL (0.00-0.70); EOSINOPHILS % (AUTO) 1.5 % (0.0-8.0); HEMATOCRIT 25.5 % (36-48); IMMATURE GRANULOCYTE ABSOLUTE 1.06 K/uL (0-1); LYMPHOCYTES # (AUTO) 1.8 K/uL (1.0-4.8); LYMPHOCYTES % (AUTO) 17.4 % (21.0-51.0); MEAN CORPUSCULAR HEMOGLOBIN 29.6 pg (27.0-33.0); MEAN CORPUSCULAR HGB CONC 32.2 g/dL (32.0-36.0); MEAN CORPUSCULAR VOLUME 92.1 fL (79-99); MONOCYTES # (AUTO) 0.9 K/uL (0.1-1.0); MONOCYTES % (AUTO) 8.6 % (3.0-13.0); NEUTROPHILS # (AUTO) 6.4 K/uL (1.8-7.7); NEUTROPHILS % (AUTO) 61.9 % (40.0-77.0); PLATELET COUNT (AUTO) 261 K/uL (130-400); RED BLOOD CELL COUNT(AUTO) 2.77 MIL/uL (4.00-5.50); RED CELL DISTRIBUTION WIDTH 14.5 % (11.0-15.5); WHITE BLOOD COUNT (AUTO) 10.3 K/uL (4.8-10.8)
[2023-12-23 05:29] LABS: CREATININE 0.6 mg/dL (0.5-1.0); MAGNESIUM 1.7 mg/dL (1.80-2.40); PHOSPHORUS 2.1 mg/dL (2.5-4.9); POTASSIUM 3.7 mmol/L (3.5-5.1)
[2023-12-23 08:00] VITALS: BP 113/66; PULSE 73; RESP 18; O2SAT 96
[2023-12-23] MEDS ORDERED: POTASSIUM CHLORIDE 10MEQ SR TAB PO PRN (08:00)
[2023-12-23] MEDS: MEMANTINE HCL 5 MG TABLET PO SCH (09:17)
[2023-12-23] MEDS: MAGNESIUM 2GM PREMIX 50ML 50 ML IV PRN (11:42)
[2023-12-23 12:00] VITALS: BP 153/77; PULSE 91; RESP 18
[2023-12-23 12:18] LABS: INR <= 0.93 (0.85-1.15); PROTHROMBIN TIME 10.7 SEC (9.6-11.6)
[2023-12-23 12:19] LABS: PARTIAL THROMBOPLASTIN TIME 31.6 SEC (26.3-35.5)
[2023-12-23 16:00] VITALS: BP 138/57; PULSE 68; RESP 16
[2023-12-23] MEDS ORDERED: TRAZODONE HCL 50 MG TAB PO SCH (21:00)
[2023-12-23] MEDS ORDERED: SIMVASTATIN 20 MG TABLET PO SCH (21:00)
[2023-12-24] MEDS ORDERED: LEVOTHYROXINE 75 MCG TABLET PO SCH (06:30)
== END 2023-12-23 18:00 | DRG 853 ==
LOC: EDH 11:31 → OBSVTOIN 11:32 → EDHIP 11:32 → UNDOADMOB 14:39 → 4DH 17:25 → 2AH 12-19 22:25 → 3BH 12-21 22:23
PROVIDERS: ADMIT Internal Medicine Critical Care Medicine; ATTEND Internal Medicine Critical Care Medicine
PROC: 0YQ60ZZ Repair Left Inguinal Region, Open Approach (ICD-10-PCS; principal; 2023-12-19 11:40)
DX: A41.9 Sepsis, unspecified organism (principal); N17.0 Acute kidney failure with tubular necrosis; E87.1 Hypo-osmolality and hyponatremia; K40.30 Unilateral inguinal hernia, with obstruction, without gangrene, not specified as recurrent; E87.3 Alkalosis; N17.9 Acute kidney failure, unspecified; R65.20 Severe sepsis without septic shock; D64.9 Anemia, unspecified; E11.51 Type 2 diabetes mellitus with diabetic peripheral angiopathy without gangrene; E86.0 Dehydration; F03.90 Unspecified dementia, unspecified severity, without behavioral disturbance, psychotic disturbance, mood disturbance, and anxiety; K31.89 Other diseases of stomach and duodenum; E78.00 Pure hypercholesterolemia, unspecified; E03.9 Hypothyroidism, unspecified; I10 Essential (primary) hypertension; E83.52 Hypercalcemia; K80.20 Calculus of gallbladder without cholecystitis without obstruction; N26.1 Atrophy of kidney (terminal); G89.29 Other chronic pain
CPT/HCPCS: 36415; 36569; 36600; 71045; 74176; 76705; 76770; 80048; 80051; 80053; 81001; 82570; 82803; 82948; 83540; 83550; 83605; 83690; 83735; 83880; 83930; 84100; 84145; 84443; 84484; 84550; 85025; 85027; 85610; 85730; 86850; 86900; 86901; 86923; 87040; 87088; 93005; 96365; 96368; 96375; 96376; A4344; C1894; G0378; J0696; J1100; J1200; J1630; J1650; J2001; J2185; J2405; J2704; J3010; J3475; J3490; J7030; J7050; A4216; A4222; A4223; A4452; C1750; J0665

== ENCOUNTER 2024-05-16 12:41 | Inpatient (IN) | payer OTHER, MEDICARE ==
[~2024-05-16] VITALS: Ht 162.6 cm; Wt 52.5 kg
[~2024-05-16 12:41] MED LIST changes: -ASPI-1005 PO; +CHOL500050 PO; -GABA600T10 PO; +MEMA10TA21 PO; -MEMA5TAB16 PO; +TRAZ-185 PO
[2024-05-16 13:40] LABS: BASOPHILS # (AUTO) 0.03 K/uL (0.00-0.20); BASOPHILS % (AUTO) 0.5 % (0.0-5.0); EOSINOPHILS # (AUTO) 0.13 K/uL (0.00-0.70); EOSINOPHILS % (AUTO) 2.1 % (0.0-8.0); HEMATOCRIT 35.8 % (36-48); IMMATURE GRANULOCYTE ABSOLUTE 0.03 K/uL (0-1); LYMPHOCYTES # (AUTO) 1.9 K/uL (1.0-4.8); MEAN CORPUSCULAR HEMOGLOBIN 28.8 pg (27.0-33.0); MEAN CORPUSCULAR HGB CONC 32.1 g/dL (32.0-36.0); MEAN CORPUSCULAR VOLUME 89.5 fL (79-99); MONOCYTES # (AUTO) 0.5 K/uL (0.1-1.0); MONOCYTES % (AUTO) 8.4 % (3.0-13.0); NEUTROPHILS # (AUTO) 3.6 K/uL (1.8-7.7); NEUTROPHILS % (AUTO) 58.5 % (40.0-77.0); PLATELET COUNT (AUTO) 267 K/uL (130-400); WHITE BLOOD COUNT (AUTO) 6.2 K/uL (4.8-10.8)
[2024-05-16 13:51] LABS: CARBON DIOXIDE 31 mmol/L (21-32); CHLORIDE 104 mmol/L (101-111); CREATININE 0.8 mg/dL (0.5-1.0); GLOMERULAR FILTR. RATE CALC 76 mL/min (>90); GLUCOSE,RANDOM 99 mg/dL (70-105); POTASSIUM 4.1 mmol/L (3.5-5.1); SODIUM SERUM 139 mmol/L (136-145); UREA NITROGEN, BLOOD 16 mg/dL (7-18)
[2024-05-16 13:52] VITALS: PULSE 70; RESP 18
[2024-05-16 13:53] LABS: INR 0.95 (0.85-1.15); PROTHROMBIN TIME 10.3 SEC (9.6-11.6)
[2024-05-16 13:55] LABS: ALANINE AMINOTRANSFERASE 15 U/L (12-78); ASPARTATE AMINOTRANSFERASE 17 U/L (10-37); BILIRUBIN,DIRECT 0.2 mg/dL (0.0-0.3); BILIRUBIN,TOTAL 0.5 mg/dL (0.2-1.0); CREATINE KINASE, TOTAL 114 U/L (21-232); PARTIAL THROMBOPLASTIN TIME 27.1 SEC (26.3-35.5); TOTAL PROTEIN, SERUM 6.5 g/dL (6.0-8.3)
[2024-05-16 14:00] LABS: AMMONIA < 10 umol/L (11-32)
[2024-05-16 15:32] LABS: APPEARANCE,URINE CLOUDY (CLEAR); BILIRUBIN,URINE NEGATIVE (NEGATIVE); COLOR,URINE YELLOW (YELLOW); GLUCOSE, URINE (UA) NEGATIVE (NEGATIVE); KETONES,URINE NEGATIVE (NEGATIVE); LEUKOCYTE ESTERASE ,URINE 75 Leu/uL (NEGATIVE); NITRATE,URINE 1+ (NEGATIVE); OCCULT BLOOD,URINE NEGATIVE (NEGATIVE); PH,URINE 5.5 (5.0-8.0); PROTEIN,URINE 20 mg/dL (NEGATIVE); UROBILINOGEN,URINE 0.2 mg/dL (0.2-1.0)
[2024-05-16 15:38] LABS: AMPHET/METH SCREEN,URINE NEGATIVE (NEGATIVE); BACTERIA,URINE FEW /HPF (None Seen); BARBITURATE SCREEN, URINE NEGATIVE (NEGATIVE); BENZODIAZEPINES SCREEN,URINE NEGATIVE (NEGATIVE); CANNABINOID SCREEN,URINE NEGATIVE (NEGATIVE); COCAINE SCREEN,URINE NEGATIVE (NEGATIVE); HYALINE CASTS, URINE 0-1 /LPF (0-1 /LPF); MUCUS,URINE RARE LPF (None Seen); OPIATE SCREEN,URINE NEGATIVE (NEGATIVE); OTHER CASTS, URINE 1 /LPF (None Seen); PHENCYCLIDINE SCREEN,URINE NEGATIVE (NEGATIVE); RBC,URINE 0-1 /HPF (0-1); SQUAMOUS EPITHELIAL CELL,UR RARE /HPF (0-2)
[2024-05-16] MEDS: AZTREONAM 1 GM VIAL IVPB SCH (16:08)
[2024-05-16] MEDS ORDERED: ondanSETRON 4MG INJ IV PRN (16:30)
[2024-05-16] MEDS ORDERED: PoTASSium chl 10% ELIXIR 20MEQ 20 MEQ/15 ML UDCUP PO PRN (16:30)
[2024-05-16] MEDS ORDERED: doCUSate SODIUM 100 MG CAP PO PRN (16:30)
[2024-05-16] MEDS ORDERED: PoTASSium chloRIDE 20MEQ ER 20 MEQ ERTAB PO PRN (16:30)
[2024-05-16] MEDS ORDERED: polyETHYLene GLYCol 3350 17 GM POWD.PACK PO PRN (16:30)
[2024-05-16] MEDS ORDERED: acetaMINOPHEN 325 MG TAB PO PRN ×2 (16:30)
[2024-05-16] MEDS ORDERED: hydrALAZine 25MG TABLET PO PRN (16:30)
[2024-05-16] MEDS ORDERED: DiphenhydrAMINE HCL 25 MG CAPSULE PO PRN (16:30)
[2024-05-16] MEDS ORDERED: MAGNESIUM 2GM PREMIX 50ML 50 ML IV PRN (16:30)
[2024-05-16] MEDS ORDERED: PoTASSium chloRIDE 20MEQ/100ML 100 ML IV PRN (16:30)
[2024-05-16] MEDS ORDERED: NITROGLYCERIN 0.4 MG SL TAB SL PRN (16:30)
[2024-05-16] MEDS ORDERED: guaiFENesin SUGAR-FREE 100 MG/5 ML UDCUP PO PRN (16:30)
[2024-05-16] MEDS ORDERED: LACTULOSE 20 GM/30 ML UDCUP PO PRN (16:30)
[2024-05-16] MEDS: 0.9%NACL 1000ML 1,000 ML IV SCH (16:39)
[2024-05-16 17:53] VITALS: BP 108/41; PULSE 70; RESP 18; TEMP 98.1
[2024-05-16 19:58] VITALS: O2SAT 97
[2024-05-16] MEDS: FAMOTIDINE 20MG TAB PO SCH (20:09)
[2024-05-16 20:23] VITALS: BP 130/77; PULSE 81; RESP 18; TEMP 97.8
[2024-05-17] VITALS (7 sets, daily range): BP systolic 106–124; BP diastolic 39–84; PULSE 64–89; RESP 16–18; TEMP 97.3–98.6; O2SAT 89–97
[2024-05-17 05:25] LABS: BASOPHILS # (AUTO) 0.01 K/uL (0.00-0.20); BASOPHILS % (AUTO) 0.2 % (0.0-5.0); EOSINOPHILS % (AUTO) 3.3 % (0.0-8.0); HEMATOCRIT 31.4 % (36-48); IMMATURE GRANULOCYTE ABSOLUTE 0.02 K/uL (0-1); LYMPHOCYTES # (AUTO) 1.7 K/uL (1.0-4.8); LYMPHOCYTES % (AUTO) 27.1 % (21.0-51.0); MEAN CORPUSCULAR HEMOGLOBIN 28.8 pg (27.0-33.0); MEAN CORPUSCULAR HGB CONC 31.2 g/dL (32.0-36.0); MEAN CORPUSCULAR VOLUME 92.4 fL (79-99); MONOCYTES # (AUTO) 0.6 K/uL (0.1-1.0); MONOCYTES % (AUTO) 9.8 % (3.0-13.0); NEUTROPHILS # (AUTO) 3.6 K/uL (1.8-7.7); NEUTROPHILS % (AUTO) 59.3 % (40.0-77.0); PLATELET COUNT (AUTO) 158 K/uL (130-400); WHITE BLOOD COUNT (AUTO) 6.1 K/uL (4.8-10.8)
[2024-05-17 05:55] LABS: CREATININE 0.7 mg/dL (0.5-1.0); POTASSIUM 3.4 mmol/L (3.5-5.1); THYROID STIMULATING HORMONE 1.95 uIU/mL (0.36-3.74)
[2024-05-17] MEDS: PoTASSium chloRIDE 20MEQ/100ML 100 ML IV PRN (06:25)
[2024-05-17] MEDS: CEFTRIAXONE 2GM VIAL IVPB SCH (08:44)
[2024-05-17] MEDS ORDERED: PHARMACY COMMUNICATION MISC SCH (17:00)
[2024-05-17] MEDS: DiphenhydrAMINE HCL 50 MG/ML VIAL IV PRN (23:56)
[2024-05-18] VITALS (10 sets, daily range): BP systolic 117–162; BP diastolic 66–92; PULSE 51–80; RESP 16–18; TEMP 96.9–98.2; O2SAT 98–99
[2024-05-18] MEDS: ENOXAPARIN SODIUM 30 MG/0.3 ML SQ SCH (09:02)
[2024-05-18] MEDS ORDERED: PHARMACY COMMUNICATION 1 EACH EACH MISC SCH (14:30)
[2024-05-18] MEDS ORDERED: ZINC OXIDE OINT 56.7 GM TP SCH (21:00)
[2024-05-18] MEDS: BALSAM PERU/CASTOR OIL 60 GM TUBE TP SCH (21:40)
[2024-05-18] MEDS: hydrOXYzine 25 MG TABLET PO SCH (21:40)
[2024-05-18] MEDS: ZINC OXIDE OINT 60GM TUBE TP SCH (21:40)
[2024-05-19 04:55] VITALS: BP 124/97; PULSE 72; RESP 18; TEMP 97.6
[2024-05-19 06:22] LABS: HEMATOCRIT 31.8 % (36-48); MEAN CORPUSCULAR HEMOGLOBIN 28.4 pg (27.0-33.0); MEAN CORPUSCULAR HGB CONC 31.1 g/dL (32.0-36.0); MEAN CORPUSCULAR VOLUME 91.4 fL (79-99); RED BLOOD CELL COUNT(AUTO) 3.48 MIL/uL (4.00-5.50); RED CELL DISTRIBUTION WIDTH 16.8 % (11.0-15.5)
[2024-05-19 06:29] LABS: CREATININE 0.7 mg/dL (0.5-1.0)
[2024-05-19 08:18] VITALS: BP 111/56; PULSE 58; RESP 18; TEMP 97.8
[2024-05-19] MEDS: MULTIVITAMIN TABLET PO SCH (09:19)
[2024-05-19] MEDS: THIAMINE HCL 100 MG TABLET PO SCH (09:19)
[2024-05-19] MEDS: MEGESTROL 400 MG/10 ML UDCUP PO SCH (09:20)
[2024-05-19] MEDS: levoFLOXacin 750 MG TABLET PO SCH (09:20)
[2024-05-19 11:23] VITALS: BP 127/67; PULSE 82; RESP 18; TEMP 97.6
[2024-05-19 11:43] VITALS: O2SAT 99
== END 2024-05-19 19:00 | disposition home or self-care (01) | DRG 689 ==
LOC: EDBD 12:41 → EDH 12:41 → EDHIP 16:11 → 3AH 17:52
PROVIDERS: ADMIT Internal Medicine; ATTEND Internal Medicine
DX: N30.00 Acute cystitis without hematuria (principal); G93.41 Metabolic encephalopathy; R53.2 Functional quadriplegia; E44.0 Moderate protein-calorie malnutrition; Z68.1 Body mass index [BMI] 19.9 or less, adult; F03.90 Unspecified dementia, unspecified severity, without behavioral disturbance, psychotic disturbance, mood disturbance, and anxiety; E88.09 Other disorders of plasma-protein metabolism, not elsewhere classified; D64.9 Anemia, unspecified; B96.20 Unspecified Escherichia coli [E. coli] as the cause of diseases classified elsewhere; E03.9 Hypothyroidism, unspecified; E78.5 Hyperlipidemia, unspecified; I10 Essential (primary) hypertension; N39.498 Other specified urinary incontinence; I25.10 Atherosclerotic heart disease of native coronary artery without angina pectoris; Z88.0 Allergy status to penicillin; Z95.5 Presence of coronary angioplasty implant and graft
CPT/HCPCS: 36415; 70450; 71045; 80048; 80061; 80076; 80305; 81001; 82140; 82306; 82550; 82607; 83605; 83690; 83735; 84132; 84145; 84425; 84443; 84484; 85025; 85027; 85610; 85730; 87086; 87186; 93005; 94640; G0378; J0696; J1200; J1650; J3480; J3490

== ENCOUNTER 2024-06-07 15:11 | Inpatient (IN) | payer OTHER, MEDICARE ==
[~2024-06-07] VITALS: Ht 160 cm; Wt 49.9 kg
[2024-06-07 15:55] LABS: BASOPHILS # (AUTO) 0.02 K/uL (0.00-0.20); BASOPHILS % (AUTO) 0.3 % (0.0-5.0); EOSINOPHILS # (AUTO) 0.13 K/uL (0.00-0.70); HEMATOCRIT 35.3 % (36-48); IMMATURE GRANULOCYTE ABSOLUTE 0.06 K/uL (0-1); LYMPHOCYTES # (AUTO) 1.6 K/uL (1.0-4.8); LYMPHOCYTES % (AUTO) 23.6 % (21.0-51.0); MEAN CORPUSCULAR HEMOGLOBIN 29.2 pg (27.0-33.0); MEAN CORPUSCULAR HGB CONC 32.3 g/dL (32.0-36.0); MEAN CORPUSCULAR VOLUME 90.5 fL (79-99); MONOCYTES # (AUTO) 0.7 K/uL (0.1-1.0); NEUTROPHILS # (AUTO) 4.2 K/uL (1.8-7.7); NEUTROPHILS % (AUTO) 63.2 % (40.0-77.0); PLATELET COUNT (AUTO) 362 K/uL (130-400); RED CELL DISTRIBUTION WIDTH 16.6 % (11.0-15.5); WHITE BLOOD COUNT (AUTO) 6.6 K/uL (4.8-10.8)
[2024-06-07] MEDS: LACTATED RINGERS 1000ML 1,000 ML IV ONE (16:00)
--- NOTE | 2024-06-07 16:04 | EKG ---
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
--- NOTE | 2024-06-07 16:10 | HMCIMG ---
CT ABDOMEN/PELVIS W/O CONTRAST REASON: ABD PAIN COMPARISON: 12/18/2023 FINDINGS: Lung bases are clear. There are no focal liver lesions. There are normal-appearing kidneys.. Spleen and pancreas appear unremarkable. The gallbladder appears normal as well. There is mild circumferential thickening of the rectum which could represent proctitis, remainder of the colon appears unremarkable. Bowel loops appear otherwise unremarkable. This includes normal appearance of the appendix There is no evidence of free fluid or intraperitoneal air. There are no focal fluid collections. Aorta and retroperitoneum appear normal as do pelvic soft tissue structures. There is a vena cava filter in place at the L2 level. The anterior abdominal wall is intact. Osseous structures appear unremarkable. IMPRESSION: 1. Nonspecific circumferential thickening of the rectum and anus which could represent proctitis, there is no evidence of focal fluid collection. 2. The obstruction seen on previous exam has resolved, the left inguinal hernia has been repaired 3. There is a vena cava filter below the level of the renal veins at the L1-2 level 4. Otherwise unremarkable noncontrast CT abdomen and pelvis. CT was performed with one or more following dose reduction techniques: automated exposure control, adjustment of the mA and kv according to patient's size, or use of a iterative reconstruction technique.
[2024-06-07 16:17] LABS: ALBUMIN 2.7 g/dL (3.5-5.0); BILIRUBIN,DIRECT 0.1 mg/dL (0.0-0.3); BILIRUBIN,TOTAL 0.4 mg/dL (0.2-1.0); CREATININE 0.7 mg/dL (0.5-1.0); TOTAL PROTEIN, SERUM 6.7 g/dL (6.0-8.3)
[2024-06-07 16:23] LABS: POTASSIUM 2.7 mmol/L (3.5-5.1)
--- NOTE | 2024-06-07 16:25 | NUR ---
K-2.7 ERMStanley MADE AWARE
--- NOTE | 2024-06-07 16:33 | ERN ---
General Chief Complaint: Abdominal Pain Stated Complaint: ABD PAIN, DIARRHEA Time Seen by MD: 15:15 History of Present Illness Initial Comments 78-year-old female PIP EMS for diarrhea and weakness. Patient was admitted to this facility about three weeks ago for UTI. Around the of this month, approximately nine days ago, the patient developed watery diarrhea and has been having multiple episodes of watery diarrhea since. Family gave some Imodium today and yesterday and it did decrease a bit. Patient was complaining of lower abdominal pain. No vomiting. No fevers. Patient has significant dementia, so baseline mentation is altered. Not a reliable historian. History: Dementia and osteoarthrosis Allergies: Coded Allergies: Penicillins (Unverified Allergy, Unknown, 07/12/22) Home Meds Reported Medications Cholecalciferol (Vitamin D3) (Vitamin D3) 1,250 Mcg (68185 Unit) Capsule, 1250 MCG PO QWEEK, CAP 12/18/23 Memantine HCl (Memantine HCl) 10 Mg Tablet, 10 MG PO DAILY, TAB 12/18/23 Trazodone HCl (Trazodone HCl) 50 Mg Tablet, 50 MG PO HS, TAB 12/18/23 Simvastatin (Simvastatin) 20 Mg Tablet, 1 TAB PO HS 07/12/22 Levothyroxine Sodium (Levothroid/Synthroid) 75 Mcg Tab, 1 TAB PO [id number] 07/12/22 Past Medical History Past Medical History: Arthritis, Dementia Medical History Other: INSOMNIA, Past Surgical History: Other Surgical History Other: VENACAVA FILTER ROS Dictation CONSTITUTIONAL: No chills, no fever, no weakness, no diaphoresis, no malaise. HEAD/FACE: No signs of trauma. EENT: No eye pain, no blurred vision, no tearing, no double vision, no ear pain, no ear discharge, no nose pain, no nasal congestion, no throat pain, no throat swelling, no mouth pain. RESPIRATORY: No cough, no orthopnea, no SOB, no stridor, no wheezing. CARDIOVASCULAR: No chest pain, no edema, no palpitations, no syncope. GASTROINTESTINAL/ABDOMINAL: Abdominal pain and diarrhea GENITOURINARY: No abnormal discharge, no dysuria, no frequent urination, no hematuria. No complaints of pain in the genitals. MUSCULOSKELETAL: No back pain, no gout, no joint pain, no joint swelling, no muscle pain, no muscle stiffness, no neck pain. INTEGUMENTARY: No change in color, no change in hair/nails, no dryness, no lesion, no lumps, no rash. NEUROLOGICAL/PSYCH: No anxiety, not depressed, no emotional problem, no headache, no numbness, no pre-existing deficit, no history of seizures, no tremors, no weakness. HEMATOLOGIC/LYMPHATIC: Not anemic, no history of blood clots, no apparent bleeding, no bruising, glands not swollen. All Systems Negative, Except as Noted. Physical Exam Physical Exam Dictation VITAL SIGNS: Reviewed. GENERAL APPEARANCE: Alert, oriented x3, no acute distress, obese. HEAD AND FACE: Non-traumatic. EYES: PERRL, pink conjunctivas, eyelid no trauma, anterior chamber clear. EARS: Pinnas intact and no signs of trauma or erythema. Ear canals clear and no discharge. TMs no erythema. NOSE: No discharge, no bleeding. OROPHARYNX: Mouth normal, teeth no caries, tongue pink. Pharynx clear, no erythema. Tonsils no exudates, no abscesses noted. Mucous membrane moist. NECK: Supple, non-tender, no thyromegaly, no masses, no JVD, no bruits. BREAST: Deferred. CHEST: No tenderness, no crepitus, no paradoxical movement, no retractions. LUNGS: Clear, well-ventilated, symmetric, no rales, no wheezing, no rhonchi, no stridor, good breath sounds bilaterally. HEART: Regular rate, regular rhythm, no murmur, no gallops. VASCULAR: No peripheral edema. ABDOMEN: Soft, positive bowel sounds, nondistended, no guarding, nontender, no rebound, no masses no hepatomegaly, no splenomegaly, no Beckett's sign, no hernias. RECTAL: Deferred. GENITAL: Deferred. NEUROLOGICAL: Normal speech, gross motor function intact, gross sensory function intact. MUSCULOSKELETAL: Neck nontender, full range of motion, back nontender, full range of motion. EXTREMITIES: Nontender, full range of motion. SKIN: Color pink, dry, no turgor, no rash, no lacerations, no abrasions, no contusions. LYMPHATICS: Deferred. Results Laboratory and Microbiology Lab and Micro Result Laboratory Tests Test 06/07/24 15:37 White Blood Count 6.6 K/uL (4.8-10.8) Red Blood Count 3.90 MIL/uL (4.00-5.50) L Hemoglobin 11.4 g/dL (12.0-16.0) L Hematocrit 35.3 % (36-48) L Mean Corpuscular Volume 90.5 fL (79-99) Mean Corpuscular Hemoglobin 29.2 pg (27.0-33.0) Mean Corpuscular Hemoglobin Concent 32.3 g/dL (32.0-36.0) Red Cell Distribution Width 16.6 % (11.0-15.5) H Platelet Count 362 K/uL (130-400) Mean Platelet Volume 9.3 fL (7.5-10.5) Immature Granulocyte % (Auto) 0.9 % (0-1) Neutrophils (%) (Auto) 63.2 % (40.0-77.0) Lymphocytes (%) (Auto) 23.6 % (21.0-51.0) Monocytes (%) (Auto) 10.0 % (3.0-13.0) Eosinophils (%) (Auto) 2.0 % (0.0-8.0) Basophils (%) (Auto) 0.3 % (0.0-5.0) Neutrophils # (Auto) 4.2 K/uL (1.8-7.7) Lymphocytes # (Auto) 1.6 K/uL (1.0-4.8) Monocytes # (Auto) 0.7 K/uL (0.1-1.0) Eosinophils # (Auto) 0.13 K/uL (0.00-0.70) Basophils # (Auto) 0.02 K/uL (0.00-0.20) Absolute Immature Granulocyte (auto 0.06 K/uL (0-1) Nucleated Red Blood Cells 0.0 % (0.0-0.19) Sodium Level 138 mmol/L (136-145) Potassium Level 2.7 mmol/L (3.5-5.1) *L Chloride Level 102 mmol/L (101-111) Carbon Dioxide Level 28 mmol/L (21-32) Blood Urea Nitrogen 14 mg/dL (7-18) Creatinine 0.7 mg/dL (0.5-1.0) Glomerular Filtration Rate Calc 89 mL/min (>90) Random Glucose 98 mg/dL (70-105) Total Calcium 8.8 mg/dL (8.5-10.1) Total Bilirubin 0.4 mg/dL (0.2-1.0) Direct Bilirubin 0.1 mg/dL (0.0-0.3) Aspartate Amino Transf (AST/SGOT) 13 U/L (10-37) Alanine Aminotransferase (ALT/SGPT) 12 U/L (12-78) Alkaline Phosphatase 70 U/L (50-136) Total Creatine Kinase 18 U/L (21-232) #L Troponin I High Sensitivity 13 ng/L (4-50) Total Protein 6.7 g/dL (6.0-8.3) Albumin 2.7 g/dL (3.5-5.0) L Lipase 26 U/L (16-77) MDM CC: Diarrhea abdominal pain Independent historian: Patient's daughter due to patient having dementia Comorbidities: Advanced age and dementia Limitations by social determinants of health: None Initial concern for dehydration, colitis, surgical pathology in the abdomen, metabolic abnormalities, C diff, other. Vital signs are stable, remained stable in the ER. The CBC ordered and interpreted by me: Mild normocytic anemia otherwise unremarkable Chemistry panel shows low potassium 2.7. The liver enzymes are normal. Lipase is normal. Troponin is normal. CT scan of the abdomen and pelvis shows possible proctitis, no free air per my interpretation. Patient received IV fluids, Zosyn, and potassium here in the ER. We will admit for dehydration, hypokalemia, proctitis, diarrhea. Family is agreeable. Case discussed with hospitalist, agrees with admission. ED Course Orders Procedure Category Date Status Time Cbc With Differential LAB 06/07/24 Complete 15:15 Troponin I High LAB 06/07/24 Complete Sensitivity 15:15 Urinalysis Profile LAB 06/07/24 Logged 15:15 Occult Blood Stool LAB 06/07/24 Logged Single Only 15:15 12 Lead Ekg Tracing- EKG 06/07/24 Complete Technical 15:15 Lactated Ringers PHA 06/07/24 Complete 1000ml (Lactated 15:30 Creatine Kinase, Total LAB 06/07/24 Complete 15:15 Ct Abdomen/Pelvis W/O CT 06/07/24 Resulted Contrast 15:15 Lipase LAB 06/07/24 Complete 15:15 Basic Metabolic Panel LAB 06/07/24 Complete 15:15 Hepatic Function Panel LAB 06/07/24 Complete 15:15 0.9%Nacl 1000ml (Ns PHA 06/07/24 Complete 1000ml) 17:30 Zosyn 3.375gm+Ns 50ml PHA 06/07/24 Pending (Zosyn 3.375gm+Ns 17:30 Initiate Npo BIBI 06/07/24 In Process Hypokalemia Leticia 17:27 Potassium Chloride PHA 06/07/24 In Process 20meq/100ml ([place] 17:30 Notify Physician If CPOE 06/07/24 Transmitted There Is 17:27 Notify Md On The Next CPOE 06/07/24 Transmitted 17:27 Notify Md On The CPOE 06/07/24 Transmitted Next(Cont.) 17:27 Pharmacy PHA 06/07/24 In Process Communication 18:00 Current Medications Medications (Trade) Dose Ordered Sig/Theron Route PRN Reason Start Time Stop Time Status Last Admin Dose Admin Lactated Ringer's 1,000 ml @ 0 mls/hr ONCE ONCE IV 06/07/24 15:30 06/07/24 15:31 DC 06/07/24 16:00 Pharmacy Profile Note (Pharmacy Communication) 1 each Q30MIN MISC 06/07/24 18:00 06/14/24 17:59 Piperacillin Sod/ Tazobactam Sod (Zosyn 3.375gm+NS 50ml) 3.375 gm Q8H IV 06/07/24 17:30 06/17/24 17:29 UNV Potassium Chloride 100 ml @ 50 mls/hr AD PRN IV POTASSIUM PROTOCOL 06/07/24 17:30 07/07/24 17:29 Sodium Chloride 1,000 ml @ 0 mls/hr ONCE ONCE IV 06/07/24 17:30 06/07/24 17:31 DC Vital Signs Date Time Temp Pulse Resp B/P (MAP) Pulse Ox O2 Delivery O2 Flow Rate FiO2 06/07/24 16:43 67 16 151/63 98 Room Air* 0 21 06/07/24 15:28 98.1 76 16 99 Room Air* 0 21 06/07/24 15:13 98.8 74 16 137/82 100 Room Air 0 DX & DISP Disposition: Inpatient Departure Impression: Primary Impression: Proctitis Additional Impressions: Diarrhea, Dehydration, Hypokalemia, Normocytic anemia Condition: Stable Referrals: PJ RABAGO MD (PCP) MAMIE RAPP DO Jun 07, 2024 16:33
[2024-06-07] MEDS ORDERED: ZOSYN 3.375GM +NS 50ML IV SCH (17:30)
[2024-06-07] MEDS: PoTASSium chloRIDE 20MEQ/100ML 100 ML IV PRN (17:59)
[2024-06-07] MEDS: 0.9%NACL 1000ML 1,000 ML IV ONE (17:59)
[2024-06-07] MEDS ORDERED: PHARMACY COMMUNICATION MISC SCH (18:00)
--- NOTE | 2024-06-07 18:27 | HP ---
[facility] HISTORY & PHYSICAL Date Patient Seen: Jun 07, 2024 Time of Visit: 18:27 Supervising Physician: Dr. Dylan Lacey Primary Care Physician: Dr. Ivon Joseph Outpatient Specialists: Inpatient Consults: PROBLEM LIST: Proctitis Diarrhea Anemia of chronic disease Sever hypokalemia Dehydration, POA Hypoalbuminemia HPI: Ms. Catalan is a 78-year-old female who presented to the ED EMS for evaluation of diarrhea and weakness. Patient was admitted to this facility about three weeks ago for UTI. Around the of this month, approximately nine days ago, the patient developed watery diarrhea and has been having multiple episodes of watery diarrhea since. Family gave some Imodium today and yesterday and it did decrease a bit. Patient was complaining of lower abdominal pain. The patient denied chest pain, shortness of breath, No vomiting. No fevers." CT abdomen: 1. Nonspecific circumferential thickening of the rectum and anus which could represent proctitis, there is no evidence of focal fluid collection. 2. The obstruction seen on previous exam has resolved, the left inguinal hernia has been repaired 3. There is a vena cava filter below the level of the renal veins at the L1-2 level 4. Otherwise unremarkable noncontrast CT abdomen and pelvis. I assessed the patient at the [facility] in 431-1. The patient is comfortable and in no distress Plan and assessment are listed below. PAST MEDICAL HX: see above PAST SURGICAL HX: Cholecystectomy SOCIAL HISTORY: No tobacco, ETOH, or illicit drug use Coded Allergies: Penicillins (Unverified Allergy, Unknown, 07/12/22) REVIEW OF SYSTEMS: 12 point ROS reviewed with patient. Pertinent positives mentioned above. Otherwise negative. PHYSICAL EXAM: GENERAL: alert, weak, awake oriented x 3 HEENT: EOMI, Sclera non icteric, moist mucosa NECK: Supple, no JVD, trachea midline LUNGS: Clear breath sounds bilaterally. No wheezes HEART: Regular rate and rhythm. Normal S1 and S2, without murmurs ABD: Abdomen soft, nontender. Bowel sounds present EXT: No clubbing cyanosis or edema NEURO: Alert and oriented to person, follows commands Vital Signs (last 8hr) Date Time Temp Pulse Resp B/P (MAP) Pulse Ox O2 Delivery O2 Flow Rate FiO2 06/07/24 16:43 67 16 151/63 98 Room Air* 0 21 06/07/24 15:28 98.1 76 16 99 Room Air* 0 06/07/24 15:13 98.8 74 16 137/82 100 Room Air 0 LABS: Hematology Labs: Test 06/07/24 15:37 Range/Units White Blood Count 6.6 4.8-10.8 K/uL Red Blood Count 3.90 L 4.00-5.50 MIL/uL Hemoglobin 11.4 L 12.0-16.0 g/dL Hematocrit 35.3 L 36-48 % Mean Corpuscular Volume 90.5 79-99 fL Mean Corpuscular Hemoglobin 29.2 27.0-33.0 pg Mean Corpuscular Hemoglobin Concent 32.3 32.0-36.0 g/dL Red Cell Distribution Width 16.6 H 11.0-15.5 % Platelet Count 362 130-400 K/uL Mean Platelet Volume 9.3 7.5-10.5 fL Immature Granulocyte % (Auto) 0.9 0-1 % Neutrophils (%) (Auto) 63.2 40.0-77.0 % Lymphocytes (%) (Auto) 23.6 21.0-51.0 % Monocytes (%) (Auto) 10.0 3.0-13.0 % Eosinophils (%) (Auto) 2.0 0.0-8.0 % Basophils (%) (Auto) 0.3 0.0-5.0 % Neutrophils # (Auto) 4.2 1.8-7.7 K/uL Lymphocytes # (Auto) 1.6 1.0-4.8 K/uL Monocytes # (Auto) 0.7 0.1-1.0 K/uL Eosinophils # (Auto) 0.13 0.00-0.70 K/uL Basophils # (Auto) 0.02 0.00-0.20 K/uL Absolute Immature Granulocyte (auto 0.06 0-1 K/uL Nucleated Red Blood Cells 0.0 0.0-0.19 % Chemistry Labs: Test 06/07/24 15:37 Range/Units Sodium Level 138 136-145 mmol/L Potassium Level 2.7 *L 3.5-5.1 mmol/L Chloride Level 102 101-111 mmol/L Carbon Dioxide Level 28 21-32 mmol/L Blood Urea Nitrogen 14 7-18 mg/dL Creatinine 0.7 0.5-1.0 mg/dL Glomerular Filtration Rate Calc 89 >90 mL/min Random Glucose 98 70-105 mg/dL Total Calcium 8.8 8.5-10.1 mg/dL Total Bilirubin 0.4 0.2-1.0 mg/dL Direct Bilirubin 0.1 0.0-0.3 mg/dL Aspartate Amino Transf (AST/SGOT) 13 10-37 U/L Alanine Aminotransferase (ALT/SGPT) 12 12-78 U/L Alkaline Phosphatase 70 50-136 U/L Total Creatine Kinase 18 #L 21-232 U/L Troponin I High Sensitivity 13 4-50 ng/L Total Protein 6.7 6.0-8.3 g/dL Albumin 2.7 L 3.5-5.0 g/dL Lipase 26 16-77 U/L DIAGNOSTICS / RADIOLOGY RESULTS: [ ] PLAN Admit the patient to the medical floor with telemetry monitoring. Start Levaquin 500 mg IV daily. IV gently hydration. Blend Diet. Sent stool for Cdiff, culture, WBC. NEURO: Minimize central acting medications as possible. Maintain fall precautions, adequate lighting during the day PULMONARY: Supplemental 02 as needed. Maintain aspiration precautions at all times CARDIOVASCULAR: Follow hemodynamics. Vital signs per facility protocol GI & NUTRITION: Continue with nutritional support. Continue stool softeners and laxatives as needed. KIDNEYS & ELECTROLYTES: Strict monitoring of intake, output and overall fluid balance. Avoid nephrotoxic medications to the extent possible. Medications to be dosed according to renal function. Monitor electrolytes and replace as needed ENDOCRINE: Maintain blood glucose between 100-180 at all times. Hypoglycemia protocol in place INFECTIOUS DISEASE: Trend temperature, WBC and procalcitonin level Follow cultures, deescalate antibiotics as soon as possible. Panculture if new onset fever ONCOLOGY/HEMATOLOGY/COAGULATION: Monitor for s/s of bleeding Monitor hemoglobin, coagulation studies as needed SKIN: Pressure ulcer prevention per facility protocol Specialty mattress ORTHO/REHAB: Continue PT/OT Prophylaxis: Continue GI and DVT prophylaxis Code Status: Full Resuscitation Disposition: CAL FLORES Jun 07, 2024 18:27
[2024-06-07] MEDS ORDERED: hydrALAZine 20MG/ML VIAL IV PRN (18:30)
[2024-06-07] MEDS ORDERED: acetaMINOPHEN 650 MG SUPPOSITORY RC PRN (18:30)
[2024-06-07] MEDS ORDERED: LACTULOSE 20 GM/30 ML UDCUP PO PRN (18:30)
[2024-06-07] MEDS ORDERED: GLUCAGON 1MG KIT 1 MG ML IM PRN (18:30)
[2024-06-07] MEDS ORDERED: PoTASSium chloRIDE 20MEQ ER 20 MEQ ERTAB PO PRN (18:30)
[2024-06-07] MEDS ORDERED: PoTASSium chloRIDE 20MEQ/100ML 100 ML IV PRN (18:30)
[2024-06-07] MEDS ORDERED: ondanSETRON 4MG INJ IVP PRN (18:30)
[2024-06-07] MEDS ORDERED: doCUSate SODIUM 100 MG CAP PO PRN (18:30)
[2024-06-07] MEDS ORDERED: acetaMINOPHEN 325 MG TAB PO PRN (18:30)
[2024-06-07] MEDS ORDERED: DEXTROSE 50%-WATER 50 ML DISP.SYRIN IV PRN (18:30)
[2024-06-07] MEDS: PoTASSium chloRIDE 10MEQ/100ML 100 ML IV ONE (19:44)
[2024-06-07] MEDS: LACTATED RINGERS 1000ML 1,000 ML IV SCH (19:46)
[2024-06-07] MEDS: levoFLOXacin 500 MG/D5W 100 ML 100 ML IV SCH (20:27)
[2024-06-07 20:41] LABS: INFLUENZA TYPE A Negative For Type A (NEGATIVE); INFLUENZA TYPE B Negative For Type B (NEGATIVE)
[2024-06-07] MEDS: INSULIN humuLIN R 100 UNIT/ML 3ML SQ SCH (20:55)
[2024-06-07] MEDS: FAMOTIDINE 20MG TAB PO SCH (20:56)
[2024-06-07 21:01] LABS: SARS-CoV-2, RNA, NAAT NEGATIVE SARS CoV-2 (NEGATIVE)
[2024-06-07 21:10] VITALS: BP 159/91; PULSE 97; RESP 18; TEMP 97.8
[2024-06-07] MEDS: TEMAZepam 15 MG CAPSULE PO PRN (23:06)
[2024-06-07 23:59] LABS: APPEARANCE,URINE CLEAR (CLEAR); BILIRUBIN,URINE NEGATIVE (NEGATIVE); COLOR,URINE COLORLESS (YELLOW); GLUCOSE, URINE (UA) NEGATIVE (NEGATIVE); KETONES,URINE 10 mg/dL (NEGATIVE); LEUKOCYTE ESTERASE ,URINE NEGATIVE Leu/uL (NEGATIVE); NITRATE,URINE NEGATIVE (NEGATIVE); OCCULT BLOOD,URINE NEGATIVE (NEGATIVE); PROTEIN,URINE NEGATIVE (NEGATIVE); UROBILINOGEN,URINE 0.2 mg/dL (0.2-1.0)
[2024-06-08] VITALS: BP 98/52; PULSE 87; RESP 16; TEMP 98.1
[2024-06-08 00:06] LABS: ADD UA MICROSCOPIC YES
[2024-06-08 00:12] LABS: BACTERIA,URINE Rare /HPF (None Seen)
[2024-06-08 00:13] LABS: MUCUS,URINE Rare LPF (None Seen); SQUAMOUS EPITHELIAL CELL,UR Rare /HPF (0-2)
[2024-06-08 04:00] VITALS: BP 128/67; PULSE 82; RESP 16; TEMP 98
[2024-06-08 04:38] LABS: BASOPHILS # (AUTO) 0.01 K/uL (0.00-0.20); BASOPHILS % (AUTO) 0.1 % (0.0-5.0); EOSINOPHILS # (AUTO) 0.24 K/uL (0.00-0.70); EOSINOPHILS % (AUTO) 3.5 % (0.0-8.0); IMMATURE GRANULOCYTE ABSOLUTE 0.08 K/uL (0-1); LYMPHOCYTES # (AUTO) 1.3 K/uL (1.0-4.8); MEAN CORPUSCULAR HEMOGLOBIN 29.3 pg (27.0-33.0); MEAN CORPUSCULAR HGB CONC 32.8 g/dL (32.0-36.0); MEAN CORPUSCULAR VOLUME 89.5 fL (79-99); MONOCYTES # (AUTO) 0.7 K/uL (0.1-1.0); MONOCYTES % (AUTO) 9.7 % (3.0-13.0); NEUTROPHILS # (AUTO) 4.6 K/uL (1.8-7.7); NEUTROPHILS % (AUTO) 66.5 % (40.0-77.0); PLATELET COUNT (AUTO) 284 K/uL (130-400); RED BLOOD CELL COUNT(AUTO) 3.24 MIL/uL (4.00-5.50); RED CELL DISTRIBUTION WIDTH 16.4 % (11.0-15.5); WHITE BLOOD COUNT (AUTO) 6.9 K/uL (4.8-10.8)
[2024-06-08 05:00] LABS: CREATININE 0.6 mg/dL (0.5-1.0); MAGNESIUM 1.9 mg/dL (1.80-2.40); PHOSPHORUS 2.2 mg/dL (2.5-4.9); POTASSIUM 3.5 mmol/L (3.5-5.1); THYROID STIMULATING HORMONE 3.66 uIU/mL (0.36-3.74)
[2024-06-08] MEDS: MAGNESIUM 2GM PREMIX 50ML 50 ML IV PRN (05:41)
[2024-06-08] MEDS: PoTASSium chl 10% ELIXIR 20MEQ 20 MEQ/15 ML UDCUP PO PRN (06:13)
[2024-06-08 08:00] VITALS: BP 122/63; PULSE 76; RESP 19; TEMP 98.1
[2024-06-08] MEDS: ENOXAPARIN SODIUM 40 MG/0.4 ML SYRINGE SQ SCH (10:06)
--- NOTE | 2024-06-08 11:56 | PN ---
[facility] PROGRESS NOTE Date Patient Seen: Jun 08, 2024 Time of Visit: 11:56 Supervising Physician: Dr. Juan Jose Ortega Primary Care Physician: Dr. Ivon Joseph Outpatient Specialists: Inpatient Consults: NA PROBLEM LIST: Acute Proctitis Constipation then diarrhea due to laxatives Severe hypokalemia Dehydration Anemia of chronic disease Hypoalbuminemia Failure to thrive Dementia INTERVAL HISTORY: Patient assessed at bedside. AAO x name. Forgetful due to dementia per sons at bedside. Currently on room air. Very weak. Ate [employer] breakfast brought in by son. No more BM reported. Daughter requesting DNR/DNI and information on hospice. SS consulted. Continue on IV fluids for now. REVIEW OF SYSTEMS: Unable due to mental status PHYSICAL EXAM: GENERAL: alert, weak, awake oriented x name HEENT: EOMI, Sclera non icteric, moist mucosa NECK: Supple, no JVD, trachea midline LUNGS: Clear breath sounds bilaterally. No wheezes HEART: Regular rate and rhythm. Normal S1 and S2, without murmurs ABD: Abdomen soft, nontender. Bowel sounds present EXT: No clubbing cyanosis or edema NEURO: Alert and oriented to person, follows commands Vital Signs (last 8hr) Date Time Temp Pulse Resp B/P (MAP) Pulse Ox O2 Delivery O2 Flow Rate FiO2 06/08/24 08:00 98.1 76 19 122/63 97 Room Air 06/08/24 04:00 98.1 82 16 128/67 92 Room Air LABS: Hematology Labs: Test 06/08/24 04:16 Range/Units White Blood Count 6.9 4.8-10.8 K/uL Red Blood Count 3.24 L 4.00-5.50 MIL/uL Hemoglobin 9.5 L 12.0-16.0 g/dL Hematocrit 29.0 L 36-48 % Mean Corpuscular Volume 89.5 79-99 fL Mean Corpuscular Hemoglobin 29.3 27.0-33.0 pg Mean Corpuscular Hemoglobin Concent 32.8 32.0-36.0 g/dL Red Cell Distribution Width 16.4 H 11.0-15.5 % Platelet Count 284 130-400 K/uL Mean Platelet Volume 9.4 7.5-10.5 fL Immature Granulocyte % (Auto) 1.2 H 0-1 % Neutrophils (%) (Auto) 66.5 40.0-77.0 % Lymphocytes (%) (Auto) 19.0 L 21.0-51.0 % Monocytes (%) (Auto) 9.7 3.0-13.0 % Eosinophils (%) (Auto) 3.5 0.0-8.0 % Basophils (%) (Auto) 0.1 0.0-5.0 % Neutrophils # (Auto) 4.6 1.8-7.7 K/uL Lymphocytes # (Auto) 1.3 1.0-4.8 K/uL Monocytes # (Auto) 0.7 0.1-1.0 K/uL Eosinophils # (Auto) 0.24 0.00-0.70 K/uL Basophils # (Auto) 0.01 0.00-0.20 K/uL Absolute Immature Granulocyte (auto 0.08 0-1 K/uL Nucleated Red Blood Cells 0.0 0.0-0.19 % Chemistry Labs: Test 06/08/24 11:13 06/08/24 04:16 06/07/24 15:37 Range/Units Whole Blood Glucose 81 70-110 MG/DL Sodium Level 140 136-145 mmol/L Potassium Level 3.5 3.5-5.1 mmol/L Chloride Level 107 101-111 mmol/L Carbon Dioxide Level 25 21-32 mmol/L Blood Urea Nitrogen 8 7-18 mg/dL Creatinine 0.6 0.5-1.0 mg/dL Glomerular Filtration Rate Calc 92 >90 mL/min Random Glucose 83 70-105 mg/dL Total Calcium 8.1 L 8.5-10.1 mg/dL Phosphorus Level 2.2 L 2.5-4.9 mg/dL Magnesium Level 1.90 1.80-2.40 mg/dL Thyroid Stimulating Hormone (TSH) 3.66 # 0.36-3.74 uIU/mL Total Bilirubin 0.4 0.2-1.0 mg/dL Direct Bilirubin 0.1 0.0-0.3 mg/dL Aspartate Amino Transf (AST/SGOT) 13 10-37 U/L Alanine Aminotransferase (ALT/SGPT) 12 12-78 U/L Alkaline Phosphatase 70 50-136 U/L Total Creatine Kinase 18 #L 21-232 U/L Troponin I High Sensitivity 13 4-50 ng/L Total Protein 6.7 6.0-8.3 g/dL Albumin 2.7 L 3.5-5.0 g/dL Lipase 26 16-77 U/L DIAGNOSTICS / RADIOLOGY RESULTS: NA PLAN Admit the patient to the medical floor with telemetry monitoring. Continue Levaquin 500 mg IV daily. IV gently hydration. Brat Diet. Sent stool for Cdiff, culture, WBC. NEURO: Minimize central acting medications as possible. Maintain fall precautions, adequate lighting during the day PULMONARY: Supplemental 02 as needed. Maintain aspiration precautions at all times CARDIOVASCULAR: Follow hemodynamics. Vital signs per facility protocol GI & NUTRITION: Continue with nutritional support. Continue stool softeners and laxatives as needed. KIDNEYS & ELECTROLYTES: Strict monitoring of intake, output and overall fluid balance. Avoid nephrotoxic medications to the extent possible. Medications to be dosed according to renal function. Monitor electrolytes and replace as needed ENDOCRINE: Maintain blood glucose between 100-180 at all times. Hypoglycemia protocol in place INFECTIOUS DISEASE: Trend temperature, WBC and procalcitonin level Follow cultures, deescalate antibiotics as soon as possible. Panculture if new onset fever ONCOLOGY/HEMATOLOGY/COAGULATION: Monitor for s/s of bleeding Monitor hemoglobin, coagulation studies as needed SKIN: Pressure ulcer prevention per facility protocol Specialty mattress ORTHO/REHAB: Continue PT/OT Prophylaxis: Continue GI and DVT prophylaxis Pepcid/lovenox Code Status: DNR/DNI Disposition: WU ADAMSON Jun 08, 2024 11:56
[2024-06-08 12:00] VITALS: BP 101/67; PULSE 75; RESP 19; TEMP 97.9
--- NOTE | 2024-06-08 14:42 | NUR ---
Initial assessment- readmission SW met with patient and pt's son Saud and Elías Catalan. Mr Reveles said that the patient resides with her daughter Marysol Teran and that the pt has provider services to assist her with her adl's, meal prep and home maintenance. Mr Saud Catalan said that the patient has a walker, wheelchair and hospital bed. Mr Catalan reported that the patient is mostly in bed due to fatigue. DCP is home. Pcp is Ivon Joseph and preferred pharmacy is [facility]. Mr Catalan said that Marysol Teran is the MPOA however she went home to rest for the day. Mr Catalan said that Ms Teran said that she would return in the evening. SW made outreach to Ms Teran and left a message. Nurse notified. Addendum: 06/08/24 at 1448 by ISABEL CAMEJO SS Amended: Links added.
--- NOTE | 2024-06-08 15:26 | NUR ---
SW received call pt's daughter Marysol Teran. Ms Teran said that she was calling to inform that the family wishes to pursue hospice however they will let us know what agency they want to use in the morning.
[2024-06-08 16:00] VITALS: BP 100/56; PULSE 83; RESP 19; TEMP 97.9
--- NOTE | 2024-06-08 19:00 | NUR ---
DNR Daughter Marysol Cain signed DNR consent.
[2024-06-08 20:00] VITALS: BP 156/83; PULSE 88; RESP 18; TEMP 97.9; O2SAT 98
--- NOTE | 2024-06-08 21:25 | NUR ---
Daughter request to have all four rails up at night due to history of dementia and combative at times. Charge nurse aware.
[2024-06-09 04:00] VITALS: BP 146/82; PULSE 72; RESP 18; TEMP 98.2
[2024-06-09 04:44] LABS: HEMATOCRIT 28.9 % (36-48); MEAN CORPUSCULAR HEMOGLOBIN 29.7 pg (27.0-33.0); MEAN CORPUSCULAR HGB CONC 32.5 g/dL (32.0-36.0); MEAN CORPUSCULAR VOLUME 91.5 fL (79-99); RED BLOOD CELL COUNT(AUTO) 3.16 MIL/uL (4.00-5.50); RED CELL DISTRIBUTION WIDTH 16.5 % (11.0-15.5); WHITE BLOOD COUNT (AUTO) 7.9 K/uL (4.8-10.8)
[2024-06-09 04:56] LABS: ALBUMIN 2.2 g/dL (3.5-5.0); BILIRUBIN,TOTAL 0.3 mg/dL (0.2-1.0); CREATININE 0.6 mg/dL (0.5-1.0); MAGNESIUM 2.3 mg/dL (1.80-2.40); POTASSIUM 3.2 mmol/L (3.5-5.1); TOTAL PROTEIN, SERUM 5.6 g/dL (6.0-8.3)
[2024-06-09 08:00] VITALS: BP 129/74; PULSE 83; RESP 19; TEMP 98.7; O2SAT 99
--- NOTE | 2024-06-09 08:32 | NUR ---
RAVIN met with patient and patient's daughter Marysol Teran. Ms Teran said that family had decided to take pt home with hospice. Ms Teran said that she is requesting the patient discharge home with [facility]. Consent form signed and placed in the chart.
[2024-06-09] MEDS: FAMOTIDINE 20MG TAB PO SCH (09:00)
--- NOTE | 2024-06-09 09:00 | NUR ---
[facility] [phone] SW made outreach to [facility] and spoke to Elena Helton on referral. Ms Helton provided fax number as [phone]. Referral faxed.
--- NOTE | 2024-06-09 10:43 | NUR ---
RAVIN received call from Conchita Gilles from [facility]. Ms Campoverde said that she would be meeting with patient and her daughter Marysol Teran today at noon. RAVIN advised that OOH - DNR was signed by Mrs Teran however needs to be signed/ completed by their doctor/ MD director. Ms Campoverde expressed understanding.
[2024-06-09] MEDS: doCUSate SODIUM 100 MG CAP PO ONE (11:23)
[2024-06-09] MEDS: SENNOSIDES 8.6 MG TABLET PO SCH (11:23)
[2024-06-09 12:00] VITALS: BP 130/65; PULSE 72; RESP 19; TEMP 98.2
--- NOTE | 2024-06-09 14:48 | NUR ---
RAVIN made outreach to Conchita clayton from [facility] to follow up. Conchita said that she had attempted to visit with the patient and her daughter Marysol Teran however they had requested a visit at a later time. RAVIN made outreach to Marysol Teran to follow up. Ms Rhoadesn said that she would be following up with Ms Conchita Clayton.
[2024-06-09] MEDS ORDERED: SENN8.6T32 PO (14:58)
[2024-06-09] MEDS ORDERED: LEVO-70 PO (14:58)
[2024-06-09] MEDS ORDERED: POLY17PO4 PO (14:58)
--- NOTE | 2024-06-09 15:33 | NUR ---
CM NOTE: EMS ARRANGED CM ARRANGED AND FAXED EMS PCS TO [facility] IN CASE PT ABLE TO DC TODAY, PRIMARY NURSE TO CALL [facility] ONCE PT READY TO DC. CM TO CONTINUE TO FOLLOW UP.
--- NOTE | 2024-06-09 15:43 | NUR ---
HOME with [facility] received call from Conchita Campoverde. Ms Campoverde said that she had visit with patient and Marysol Teran and they had accepted hospice services. Ms Campoverde reported that Ms Teran said that they did not need DME as the pt has hospital bed and all other needed supplies. Ms campoverde said that OOH- DNR is located on the pt's chart. CM notified. Call report # [phone].
--- NOTE | 2024-06-09 17:09 | DS ---
[facility] DISCHARGE SUMMARY Date Patient Seen: Jun 09, 2024 Time of Visit: 17:08 Supervising Physician: Dr. Juan Jose Ortega Primary Care Physician: Dr. Ivon Joseph Outpatient Specialists: Inpatient Consults: NA PROBLEM LIST: Acute Proctitis, resolved Constipation then diarrhea due to laxatives, resolved Severe hypokalemia, resolved Dehydration, resolved Anemia of chronic disease Hypoalbuminemia Failure to thrive Dementia HPI (per admitting provider): Ms. Catalan is a 78-year-old female who presented to the ED EMS for evaluation of diarrhea and weakness. Patient was admitted to this facility about three weeks ago for UTI. Around the of this month, approximately nine days ago, the patient developed watery diarrhea and has been having multiple episodes of watery diarrhea since. Family gave some Imodium today and yesterday and it did decrease a bit. Patient was complaining of lower abdominal pain. The patient denied chest pain, shortness of breath, No vomiting. No fevers."CT abdomen: 1. Nonspecific circumferential thickening of the rectum and anus which could represent proctitis, there is no evidence of focal fluid collection. 2. The obstruction seen on previous exam has resolved, the left inguinal hernia has been repaired 3. There is a vena cava filter below the level of the renal veins at the L1-2 level 4. Otherwise unremarkable noncontrast CT abdomen and pelvis. I assessed the patient at the [facility] in 431-1. The patient is comfortable and in no distress Plan and assessment are listed below. HOSPITAL COURSE: Patient was admitted due to diarrhea after being given enema with subsequent Imodium. Patient has been eating all her meals. Last BM was today. No overnight issues. Daughter has opted to take patient home with hospice because she doesn't want to prolong suffering and patient wouldn't want to be in and out of the hospitals. Today, patient is awake and alert. Able to voice certain needs but confused. Calm. Hospice has been arranged and patient will be discharged home with hospice. RX for Levaquin for 3 more days, senna and miralax sent to pharmacy. New Medications: Levofloxacin (Levofloxacin) 500 Mg Tablet 500 MG PO DAILY, #3 TAB Polyethylene Glycol 3350 (Miralax) 17 Gram Powd.pack 17 GM PO DAILY, #30 UNIT Sennosides (Senna) 8.6 Mg Tablet 1 TAB PO BID, #60 TAB Continued Medications: Cholecalciferol (Vitamin D3) (Vitamin D3) 1,250 Mcg (35566 Unit) Capsule 1250 MCG PO QWEEK, CAP Levothyroxine Sodium (Levothroid/Synthroid) 75 Mcg Tab 1 TAB PO ACBKFST Memantine HCl (Memantine HCl) 10 Mg Tablet 10 MG PO DAILY, TAB Simvastatin (Simvastatin) 20 Mg Tablet 1 TAB PO HS Trazodone HCl (Trazodone HCl) 50 Mg Tablet 50 MG PO HS, TAB PHYSICAL EXAM: GENERAL: alert, weak, awake oriented x name HEENT: EOMI, Sclera non icteric, moist mucosa NECK: Supple, no JVD, trachea midline LUNGS: Clear breath sounds bilaterally. No wheezes HEART: Regular rate and rhythm. Normal S1 and S2, without murmurs ABD: Abdomen soft, nontender. Bowel sounds present EXT: No clubbing cyanosis or edema NEURO: Alert and oriented to person, follows commands FOLLOW-UP: Follow-up with PCP in 2-3 days RECOMMENDATIONS: See Discharge Instructions This case was seen and discussed with my supervising physician. More than 30 minutes spent on discharge process, including evaluation of the patient, discussion with nursing staff, medication reconciliation and follow-up appointments WU SHAFFER Jun 09, 2024 17:09
[2024-06-09] MEDS ORDERED: levoFLOXacin 500 MG TABLET PO SCH (20:00)
[2024-06-10] MEDS ORDERED: polyETHYLene GLYCol 3350 17 GM POWD.PACK PO SCH (09:00)
== END 2024-06-09 17:55 | disposition hospice, home (50) | DRG 393 ==
LOC: EDH 15:11 → EDHIP 17:44 → INTOOBSV 17:44 → OBSVTOIN 17:44 → 4AH 19:58
PROVIDERS: ADMIT Internal Medicine Pulmonary Disease; ATTEND Internal Medicine Pulmonary Disease
DX: K62.89 Other specified diseases of anus and rectum (principal); E43 Unspecified severe protein-calorie malnutrition; Z68.1 Body mass index [BMI] 19.9 or less, adult; Z66 Do not resuscitate; R62.7 Adult failure to thrive; D63.8 Anemia in other chronic diseases classified elsewhere; E87.6 Hypokalemia; E86.0 Dehydration; E88.09 Other disorders of plasma-protein metabolism, not elsewhere classified; F03.90 Unspecified dementia, unspecified severity, without behavioral disturbance, psychotic disturbance, mood disturbance, and anxiety; K59.00 Constipation, unspecified; G47.09 Other insomnia; Z90.49 Acquired absence of other specified parts of digestive tract; Z88.0 Allergy status to penicillin; Z79.899 Other long term (current) drug therapy
CPT/HCPCS: 36415; 74176; 80048; 80053; 80076; 81001; 82550; 82948; 83690; 83735; 84100; 84132; 84443; 84484; 85025; 85027; 87635; 87804; 93005; 96365; 96366; G0378; J1650; J1956; J3475; J3480; J7030; J7120